=== PATIENT | female | born 1950 | race Caucasian/White ===

== ENCOUNTER 2020-07-31 08:57 | Emergency (ER) | payer MEDICARE ==
[2020-07-31] MEDS ORDERED: KETOROLAC TROMETHAMINE 15MG/ML ONE (10:00)
[2020-07-31] MEDS ORDERED: ONDANSETRON HCL 4 MG/2 ML VIAL ONE (10:00)
[2020-07-31] MEDS ORDERED: MORPHINE SULFATE 2 MG/ML 1ML SYG ONE (10:00)
[2020-07-31 10:04] LABS: BASOPHILS % (AUTO) 0.5 % (0.0-5.0); EOSINOPHILS % (AUTO) 0.4 % (0.0-8.0); HEMATOCRIT 41.4 % (36-48); LYMPHOCYTES % (AUTO) 11.9 % (21.0-51.0); MEAN CORPUSCULAR HEMOGLOBIN 30.6 pg (27.0-33.0); MEAN CORPUSCULAR HGB CONC 34.5 g/dL (32.0-36.0); MEAN CORPUSCULAR VOLUME 88.7 fL (79-99); MONOCYTES % (AUTO) 4.4 % (3.0-13.0); NEUTROPHILS % (AUTO) 82.4 % (40.0-77.0); PLATELET COUNT (AUTO) 280 K/uL (130-400); RED BLOOD CELL COUNT(AUTO) 4.67 MIL/uL (4.00-5.50); RED CELL DISTRIBUTION WIDTH 12.2 % (11.0-15.5); WHITE BLOOD COUNT (AUTO) 8.3 K/uL (4.8-10.8)
[2020-07-31 10:24] LABS: CREATININE 0.9 mg/dL (0.5-1.5); POTASSIUM 3.4 mmol/L (3.5-5.1)
[2020-07-31 10:29] LABS: ALBUMIN 4.3 g/dL (3.5-5.0); BILIRUBIN,TOTAL 0.7 mg/dL (0.2-1.0); TOTAL PROTEIN, SERUM 7.6 g/dL (6.0-8.3)
== END 2020-07-31 12:37 | disposition home or self-care (01) ==
LOC: EDH 08:57
DX: M54.31 Sciatica, right side (principal); M43.17 Spondylolisthesis, lumbosacral region; M19.90 Unspecified osteoarthritis, unspecified site; I10 Essential (primary) hypertension; Z87.891 Personal history of nicotine dependence; Z88.5 Allergy status to narcotic agent
CPT/HCPCS: 36415; 72100; 80053; 85025; 96365; 96375; 99284; J1885; J2405

== ENCOUNTER → 2020-08-16 | Outpatient (CLI) | payer MEDICARE | END | disposition home or self-care (01) | LOC: OIH 10:24 | PROVIDERS: ATTEND Internal Medicine | DX: M06.4 Inflammatory polyarthropathy (principal) ==

== ENCOUNTER 2024-06-01 13:14 | Inpatient (IN) | payer MEDICARE ==
[2024-06-01] VITALS (7 sets, daily range): BP systolic 126–148; BP diastolic 59–63; PULSE 69–82; RESP 17–20; TEMP 97.6–97.7; O2SAT 96–98
[~2024-06-01] VITALS: Ht 154.9 cm; Wt 70.4 kg
[2024-06-01 13:52] LABS: BASOPHILS # (AUTO) 0.05 K/uL (0.00-0.20); BASOPHILS % (AUTO) 0.5 % (0.0-5.0); EOSINOPHILS # (AUTO) 0.27 K/uL (0.00-0.70); EOSINOPHILS % (AUTO) 2.6 % (0.0-8.0); HEMATOCRIT 33.1 % (36-48); IMMATURE GRANULOCYTE ABSOLUTE 0.04 K/uL (0-1); LYMPHOCYTES % (AUTO) 9.9 % (21.0-51.0); MEAN CORPUSCULAR HEMOGLOBIN 29.4 pg (27.0-33.0); MEAN CORPUSCULAR HGB CONC 33.8 g/dL (32.0-36.0); MEAN CORPUSCULAR VOLUME 86.9 fL (79-99); MONOCYTES % (AUTO) 9.2 % (3.0-13.0); NEUTROPHILS # (AUTO) 8.1 K/uL (1.8-7.7); NEUTROPHILS % (AUTO) 77.4 % (40.0-77.0); PLATELET COUNT (AUTO) 265 K/uL (130-400); RED BLOOD CELL COUNT(AUTO) 3.81 MIL/uL (4.00-5.50); RED CELL DISTRIBUTION WIDTH 14.6 % (11.0-15.5); WHITE BLOOD COUNT (AUTO) 10.5 K/uL (4.8-10.8)
[2024-06-01 14:04] LABS: INR 1.03 (0.85-1.15); PROTHROMBIN TIME 11.1 SEC (9.6-11.6)
--- NOTE | 2024-06-01 14:06 | HMCIMG ---
CHEST 1VW CLINICAL HISTORY: sob COMPARISON: None TECHNIQUE: Single view of the chest was obtained. FINDINGS: There is a small right pleural effusion. Cardiac size is upper limits of normal to mildly enlarged. There is a pacemaker with biventricular leads. Note is made of a left chest port with the tip overlying the superior vena cava. The bony structures are unremarkable. IMPRESSION: Right pleural effusion with borderline heart size.
[2024-06-01 14:08] LABS: POTASSIUM 3.7 mmol/L (3.5-5.1)
[2024-06-01 14:10] LABS: SARS-CoV-2, RNA, NAAT NEGATIVE SARS CoV-2 (NEGATIVE)
[2024-06-01 14:13] LABS: MAGNESIUM 1.5 mg/dL (1.80-2.40)
[2024-06-01 14:14] LABS: INFLUENZA TYPE A Negative For Type A (NEGATIVE); INFLUENZA TYPE B Negative For Type B (NEGATIVE)
[2024-06-01 14:38] LABS: B-TYPE NATRIURETIC PEPTIDE 80 pg/mL (0-100)
[2024-06-01 15:01] LABS: APPEARANCE,URINE CLEAR (CLEAR); BILIRUBIN,URINE NEGATIVE (NEGATIVE); COLOR,URINE YELLOW (YELLOW); GLUCOSE, URINE (UA) NEGATIVE (NEGATIVE); KETONES,URINE NEGATIVE (NEGATIVE); LEUKOCYTE ESTERASE ,URINE 250 Leu/uL (NEGATIVE); NITRATE,URINE NEGATIVE (NEGATIVE); OCCULT BLOOD,URINE NEGATIVE (NEGATIVE); PH,URINE 5.5 (5.0-8.0); PROTEIN,URINE 10 mg/dL (NEGATIVE); UROBILINOGEN,URINE 0.2 mg/dL (0.2-1.0)
[2024-06-01 15:07] LABS: ADD UA MICROSCOPIC YES
[2024-06-01 15:10] LABS: BACTERIA,URINE FEW /HPF (None Seen); MUCUS,URINE RARE LPF (None Seen); RBC,URINE 0-1 /HPF (0-1); SQUAMOUS EPITHELIAL CELL,UR RARE /HPF (0-2)
--- NOTE | 2024-06-01 15:29 | ERN ---
General Chief Complaint: Shortness of Breath Stated Complaint: SOB Time Seen by MD: 13:19 Source: patient, family History of Present Illness Initial Comments Patient is a 74-year-old female coming in to be evaluated for shortness of breath. Patient states he has a history of lung cancer and frequently presents with pneumonias. Patient states the symptoms has been ongoing for a couple of days and has been getting worse today. Allergies: Coded Allergies: codeine (Unverified Allergy, Severe, HIVES, 06/01/24) cefaclor (Unverified Allergy, Unknown, RASH, 06/01/24) Past Medical History Past Medical History: Anemia, Cancer, High Cholesterol, Hypertension Past Surgical History: Hysterectomy, Cholecystectomy, Pacer/AICD Surgical History Other: RT LEG SX, BILAT HAND SX, CATARACT SX, RT LOBECTOMY ROS Dictation CONSTITUTIONAL: No chills, no fever, no weakness, no diaphoresis, no malaise. HEAD/FACE: No signs of trauma. EENT: No eye pain, no blurred vision, no tearing, no double vision, no ear pain, no ear discharge, no nose pain, no nasal congestion, no throat pain, no throat swelling, no mouth pain. RESPIRATORY: No cough, orthopnea, SOB, no stridor, wheezing. CARDIOVASCULAR: No chest pain, no edema, no palpitations, no syncope. GASTROINTESTINAL/ABDOMINAL: No abdominal pain, no constipation, no diarrhea, no nausea, no vomiting. GENITOURINARY: No abnormal discharge, no dysuria, no frequent urination, no hematuria. No complaints of pain in the genitals. MUSCULOSKELETAL: No back pain, no gout, no joint pain, no joint swelling, no muscle pain, no muscle stiffness, no neck pain. INTEGUMENTARY: No change in color, no change in hair/nails, no dryness, no lesion, no lumps, no rash. NEUROLOGICAL/PSYCH: No anxiety, not depressed, no emotional problem, no headache, no numbness, no pre-existing deficit, no history of seizures, no tremors, no weakness. HEMATOLOGIC/LYMPHATIC: Not anemic, no history of blood clots, no apparent bleeding, no bruising, glands not swollen. All Systems Negative, Except as Noted. Physical Exam Physical Exam Dictation VITAL SIGNS: Reviewed. GENERAL APPEARANCE: Alert, oriented x3, no acute distress, obese. HEAD AND FACE: Non-traumatic. EYES: PERRL, pink conjunctivas, eyelid no trauma, anterior chamber clear. EARS: Pinnas intact and no signs of trauma or erythema. Ear canals clear and no discharge. TMs no erythema. NOSE: No discharge, no bleeding. OROPHARYNX: Mouth normal, teeth no caries, tongue pink. Pharynx clear, no er ythema. Tonsils no exudates, no abscesses noted. Mucous membrane moist. NECK: Supple, non-tender, no thyromegaly, no masses, no JVD, no bruits. BREAST: Deferred. CHEST: No tenderness, no crepitus, no paradoxical movement, no retractions. LUNGS: Clear, well-ventilated, symmetric, no rales, no wheezing, no rhonchi, no stridor, good breath sounds bilaterally. HEART: Regular rate, regular rhythm, no murmur, no gallops. VASCULAR: No peripheral edema. ABDOMEN: Soft, positive bowel sounds, nondistended, no guarding, nontender, no rebound, no masses no hepatomegaly, no splenomegaly, no John's sign, no hernias. RECTAL: Deferred. GENITAL: Deferred. NEUROLOGICAL: Normal speech, gross motor function intact, gross sensory function intact. MUSCULOSKELETAL: Neck nontender, full range of motion, back nontender, full range of motion. EXTREMITIES: Nontender, full range of motion. SKIN: Color pink, dry, no turgor, no rash, no lacerations, no abrasions, no contusions. LYMPHATICS: Deferred. Results Laboratory and Microbiology Lab and Micro Result Laboratory Tests Test 06/01/24 13:35 06/01/24 14:35 White Blood Count 10.5 K/uL (4.8-10.8) Red Blood Count 3.81 MIL/uL (4.00-5.50) L Hemoglobin 11.2 g/dL (12.0-16.0) L Hematocrit 33.1 % (36-48) L Mean Corpuscular Volume 86.9 fL (79-99) Mean Corpuscular Hemoglobin 29.4 pg (27.0-33.0) Mean Corpuscular Hemoglobin Concent 33.8 g/dL (32.0-36.0) Red Cell Distribution Width 14.6 % (11.0-15.5) Platelet Count 265 K/uL (130-400) Mean Platelet Volume 10.4 fL (7.5-10.5) Immature Granulocyte % (Auto) 0.4 % (0-1) Neutrophils (%) (Auto) 77.4 % (40.0-77.0) H Lymphocytes (%) (Auto) 9.9 % (21.0-51.0) L Monocytes (%) (Auto) 9.2 % (3.0-13.0) Eosinophils (%) (Auto) 2.6 % (0.0-8.0) Basophils (%) (Auto) 0.5 % (0.0-5.0) Neutrophils # (Auto) 8.1 K/uL (1.8-7.7) H Lymphocytes # (Auto) 1.0 K/uL (1.0-4.8) Monocytes # (Auto) 1.0 K/uL (0.1-1.0) Eosinophils # (Auto) 0.27 K/uL (0.00-0.70) Basophils # (Auto) 0.05 K/uL (0.00-0.20) Absolute Immature Granulocyte (auto 0.04 K/uL (0-1) Nucleated Red Blood Cells 0.0 % (0.0-0.19) White Cell Morphology Comment See comments Prothrombin Time 11.1 SEC (9.6-11.6) Prothromb Time International Ratio 1.03 (0.85-1.15) Activated Partial Thromboplast Time 29.0 SEC (26.3-35.5) Sodium Level 141 mmol/L (136-145) Potassium Level 3.7 mmol/L (3.5-5.1) Chloride Level 104 mmol/L (101-111) Carbon Dioxide Level 26 mmol/L (21-32) Blood Urea Nitrogen 39 mg/dL (7-18) H Creatinine 2.0 mg/dL (0.5-1.0) H Glomerular Filtration Rate Calc 25 mL/min (>90) Random Glucose 105 mg/dL (70-105) Total Calcium 9.0 mg/dL (8.5-10.1) Magnesium Level 1.50 mg/dL (1.80-2.40) L Total Creatine Kinase 44 U/L (21-232) Troponin I High Sensitivity 16 ng/L (4-50) B-Type Natriuretic Peptide 80 pg/mL (0-100) Influenza Type A Antigen Negative For Type A Influenza Type B Antigen Negative For Type B SARS-CoV-2, RNA, NAAT NEGATIVE SARS CoV-2 Urine Color YELLOW (YELLOW) Urine Appearance CLEAR (CLEAR) Urine pH 5.5 (5.0-8.0) Urine Specific Leonard 1.020 (1.001-1.031) Urine Protein 10 mg/dL (NEGATIVE) H Urine Glucose (UA) NEGATIVE mg/dL (NEGATIVE) Urine Ketones NEGATIVE mg/dL (NEGATIVE) Urine Occult Blood NEGATIVE (NEGATIVE) Urine Nitrate NEGATIVE (NEGATIVE) Urine Bilirubin NEGATIVE mg/dL (NEGATIVE) Urine Urobilinogen 0.2 mg/dL (0.2-1.0) Urine Leukocyte Esterase 250 Francesca/uL (NEGATIVE) H Urine RBC 0-1 /HPF (0-1) Urine WBC 11-25 /HPF (0-1) H Urine Squamous Epithelial Cells RARE /HPF (0-2) Urine Bacteria FEW /HPF (None Seen) Urine Hyaline Casts 2-5 /LPF (0-1 /LPF) H Labs Reviewed?: Yes EKG/XRAY/US/CT/MRI X-RAY Comment [address] [address] IMAGING REPORT Signed PATIENT: MISTY RANDOLPH MR#: [id number] : 1950 SEX: F AGE: 74 LOCATION: [facility] ORDER 1331 STATUS: [facility] REPORT#: [id number] SERVICE 1328 REASON: sob ORDERING PHYSICIAN: HECTOR SELF MD PROCEDURE: CXR1VW - CHEST 1VW CHEST 1VW CLINICAL HISTORY: sob COMPARISON: None TECHNIQUE: Single view of the chest was obtained. FINDINGS: There is a small right pleural effusion. Cardiac size is upper limits of normal to mildly enlarged. There is a pacemaker with biventricular leads. Note is made of a left chest port with the tip overlying the superior vena cava. The bony structures are unremarkable. IMPRESSION: Right pleural effusion with borderline heart size. DICTATED BY: CATHY MULLER DO DATE: 06/01/24 1358 ELECTRONICALLY SIGNED BY: CATHY MULLER DO DATE: 06/01/24 1406 [facility] MDM: Differential diagnosis: Respiratory distress, right-sided pleural effusion, COPD exacerbation, Rationale: Tests considered and ordered secondary to shared decision making include: labs, ECG and radiology Previous outside records reviewed: Old ER visits. Risk of complication and/or morbidity or mortality of patient management: None Medications-Per medication reconciliation Need for hospitalization: Patient does meet criteria for hospitalization. Need for emergency major/minor surgery: No There are no social concerns with this patient. Prescription drug management Prescriptions will include symptomatic care Patient's prior external medical records from other ER visits were reviewed by me as indicated. Prior testing and results from previous visits were reviewed. Prior tests were taken into account with medical decision making and resource utilization, independent historian/historians were used to obtain complete medical history. I independently interpreted the test that were performed, results were reviewed by me and considered findings on radiology if ordered. Medical management and examination interpretation discussions were had by me with other qualified healthcare professionals as indicated for the patient's care. Patient is a 74-year-old female coming in to be evaluated for shortness of breath. Laboratory workup positive for hypomagnesemia and urinary tract infection. On physical exam bilateral crackles and wheezing of the lungs. Breathing treatment was given patient feels a little bit better. We will be admitted for ongoing management of COPD exacerbation with right pleural effusion and as well as history of lung cancer. Patient will be admitted under the care of hospitalist group. ED Course Orders Procedure Category Date Status Time Cbc With Differential LAB 06/01/24 Complete 13:28 Prothrombin Time With LAB 06/01/24 Complete INR 13:28 B-Type Natriuretic LAB 06/01/24 Complete Peptide 13:28 Chest 1vw RAD 06/01/24 Resulted 13:28 12 Lead Ekg Tracing- EKG 06/01/24 Logged Technical 13:28 Magnesium LAB 06/01/24 Complete 13:28 Creatine Kinase, Total LAB 06/01/24 Complete 13:28 Troponin I High LAB 06/01/24 Complete Sensitivity 13:28 Urinalysis Profile LAB 06/01/24 Complete 13:28 Partial LAB 06/01/24 Complete Thromboplastin Time 13:28 Basic Metabolic Panel LAB 06/01/24 Complete 13:28 Covid Rna Naat LAB 06/01/24 Complete 13:28 Influenza Type A & B, LAB 06/01/24 Complete Rapid 13:28 Magnesium 2gm Premix PHA 06/01/24 In Process 50ml (Magnesium 2gm 15:00 Culture Urine GINNA 06/01/24 In Process 15:08 Ipratropium/Albuterol PHA 06/01/24 Complete Neb (Duoneb) 15:30 Current Medications Medications (Trade) Dose Ordered Sig/Baldev Route PRN Reason Start Time Stop Time Status Last Admin Dose Admin Albuterol (DUOneb) 1 udvial ONCE ONCE IH 06/01/24 15:30 06/01/24 15:31 DC 06/01/24 15:48 Magnesium Sulfate 50 ml @ 0 mls/hr PROTOCOL IV 06/01/24 15:00 07/01/24 14:59 Vital Signs Date Time Temp Pulse Resp B/P (MAP) Pulse Ox O2 Delivery O2 Flow Rate FiO2 06/01/24 15:52 77 18 06/01/24 14:37 98.6 80 20 100/ 96 Room Air* 0 21 06/01/24 13:31 98.6 82 20 95/65 98 Room Air* 0 21 06/01/24 13:17 98.4 68 19 107/62 96 Room Air DX & DISP Disposition: Inpatient Decision to Admit Time: 16:24 Departure Impression: Primary Impression: COPD exacerbation Additional Impressions: Pleural effusion, History of lung cancer Condition: Stable Referrals: MICHAEL VARNER (PCP) HECTOR SELF MD Jun 01, 2024 15:29
[2024-06-01] MEDS: IpraTROPium/alBUTERol SULFATE 3 ML SOLUTION IH ONE (15:48)
[2024-06-01] MEDS: MAGNESIUM 2GM PREMIX 50ML 50 ML IV SCH (16:25)
--- NOTE | 2024-06-01 16:26 | HP ---
[facility] HISTORY AND PHYSICAL Date of Service: Jun 01, 2024 Time of Service: 16:26 HISTORY OF PRESENT ILLNESS: [74 year old female with past medical history lung cancer diagnosed in 2021 last chemotherapy was March of 2024 for which she reported they stopped because she has not tolerated well. 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 In the last four days, patient has been having episodes of cough, congestion and shortness of breaths even at rest. Patient does not have home oxygen. In the ED, her initial vitals showed temperature of 98.4 degree F, heart rate 68, respiratory rate 19, BP 107/62, O2 sat 96% on room air. Patient had a chest x-ray in the ED which showed right pleural effusion with borderline heart size. Patient received albuterol x1 via nebulizer, Levaquin 500 mg IV x1. She was referred to the hospitalist for further evaluation and management. ] REVIEW OF SYSTEMS CONSTITUTIONAL: Denies fevers, chills, or night sweats. No unintentional weight loss reported. NEUROLOGICAL: Denies headache, amaurosis fugax, motor weakness, sensory deficit, vertigo/spinning sensation, gait abnormalities, or tremors. ENT: No hearing loss, otalgia, otorrhea, rhinitis, rhinorrhea, hoarseness, or sore throat. CARDIOVASCULAR: Denies any exertional angina, dyspnea on exertion, orthopnea, paroxysmal nocturnal dyspnea, palpitations, life-threatening arrhythmias, claudication. PULMONARY: Denies any shortness of breath, cough, phlegm/sputum, hemoptysis, pleuritic chest pain. SLEEP: Denies morning headaches, daytime somnolence or napping. Denies difficulty falling asleep, staying asleep, waking from sleep. Denies knowledge of snoring. GASTROINTESTINAL: Denies any type of dysphagia to either liquids or solids. Denies nausea, vomiting, pyrosis, early satiety, abdominal pain, diarrhea, constipation, or changes in stool consistency or caliber. Denies coffee-ground emesis, hematemesis, hematochezia, or melanotic stools. GENITOURINARY: Denies frequency, urgency, nocturia, hematuria or incontinence (Storage/Irritative symptoms.) Low urinary stream, straining to void, urinary intermittency or hesitancy, splitting of the voiding stream, terminal dribbling. ENDOCRINOLOGIC: Denies polyuria, polydipsia, polyphagia or heat/cold intolerances. HEMATOLOGIC: Denies thrombophilia/previous clots, or coagulopathy/bleeding disorders. ONCOLOGIC: Denies personal history of malignancy. DERMATOLOGIC: Denies rashes or pruritus. PSYCHIATRIC: Denies any suicidal or homicidal ideation. Denies hallucinations. PAST MEDICAL HISTORY: [Lung cancer diagnosed in 2021, hypertension, CKD, hypomagnesemia, anemia ] PAST SURGICAL HISTORY: [Hysterectomy, cholecystectomy, cataract surgery, right ankle surgery ] PAST SOCIAL HISTORY: [Patient is a [place] from [place]. She is . Ex-smoker quit 30 years ago, occasionally drinks alcohol (not lately), denies illicit drug use. ] FAMILY HISTORY: [Noncontributory ] Coded Allergies: codeine (Unverified Allergy, Severe, HIVES, 06/01/24) cefaclor (Unverified Allergy, Unknown, RASH, 06/01/24) PHYSICAL EXAM GENERAL APPEARANCE: The patient is awake, alert, and oriented, in no acute cardiopulmonary distress. NEUROLOGICAL: Cranial nerves II-XII grossly intact. Motor is 5/5 in bilateral upper and lower extremities proximal to distal. No sensory deficits. HEENT: Face is symmetric. Pupils are equal and reactive. Extraocular movements are intact. NECK: Supple. No JVD. No thyromegaly. No submental, submandibular, pre- /postauricular, occipital or supraclavicular lymphadenopathy. CHEST: Normal chest expansion. No Telemetry. LUNGS: Absence of any rales, rhonchi or any wheezing. CARDIOVASCULAR: Regular. S1 and S2 normal. No appreciable rubs, murmurs or gallops. ABDOMEN: Soft, nontender, and nondistended. There is no rebound, voluntary guarding, or rigidity. : Deferred. No Rosas. EXTREMITIES: Non-edematous and not cyanotic. No clubbing. Good capillary refill. SKIN: No skin breakdown. Vital Sign (Last 24 Hours) 06/01/24 06/01/24 14:37 15:52 Temp 98.6 Pulse 77 Resp 18 B/P (MAP) 100/ Pulse Ox 96 O2 Delivery Room Air* O2 Flow Rate 0 FiO2 21 LABS: Laboratory: Test 06/01/24 14:35 06/01/24 13:35 Range/Units Urine Color YELLOW YELLOW Urine Appearance CLEAR CLEAR Urine pH 5.5 5.0-8.0 Urine Specific [place] 1.020 1.001-1.031 Urine Protein 10 H NEGATIVE mg/dL Urine Glucose (UA) NEGATIVE NEGATIVE mg/dL Urine Ketones NEGATIVE NEGATIVE mg/dL Urine Occult Blood NEGATIVE NEGATIVE Urine Nitrate NEGATIVE NEGATIVE Urine Bilirubin NEGATIVE NEGATIVE mg/dL Urine Urobilinogen 0.2 0.2-1.0 mg/dL Urine Leukocyte Esterase 250 H NEGATIVE Francesca/uL Urine RBC 0-1 0-1 /HPF Urine WBC 11-25 H 0-1 /HPF Urine Squamous Epithelial Cells RARE 0-2 /HPF Urine Bacteria FEW None Seen /HPF Urine Hyaline Casts 2-5 H 0-1 /LPF /LPF White Blood Count 10.5 4.8-10.8 K/uL Red Blood Count 3.81 L 4.00-5.50 MIL/uL Hemoglobin 11.2 L 12.0-16.0 g/dL Hematocrit 33.1 L 36-48 % Mean Corpuscular Volume 86.9 79-99 fL Mean Corpuscular Hemoglobin 29.4 27.0-33.0 pg Mean Corpuscular Hemoglobin Concent 33.8 32.0-36.0 g/dL Red Cell Distribution Width 14.6 11.0-15.5 % Platelet Count 265 130-400 K/uL Mean Platelet Volume 10.4 7.5-10.5 fL Immature Granulocyte % (Auto) 0.4 0-1 % Neutrophils (%) (Auto) 77.4 H 40.0-77.0 % Lymphocytes (%) (Auto) 9.9 L 21.0-51.0 % Monocytes (%) (Auto) 9.2 3.0-13.0 % Eosinophils (%) (Auto) 2.6 0.0-8.0 % Basophils (%) (Auto) 0.5 0.0-5.0 % Neutrophils # (Auto) 8.1 H 1.8-7.7 K/uL Lymphocytes # (Auto) 1.0 1.0-4.8 K/uL Monocytes # (Auto) 1.0 0.1-1.0 K/uL Eosinophils # (Auto) 0.27 0.00-0.70 K/uL Basophils # (Auto) 0.05 0.00-0.20 K/uL Absolute Immature Granulocyte (auto 0.04 0-1 K/uL Nucleated Red Blood Cells 0.0 0.0-0.19 % White Cell Morphology Comment See comments Prothrombin Time 11.1 9.6-11.6 SEC Prothromb Time International Ratio 1.03 0.85-1.15 Activated Partial Thromboplast Time 29.0 26.3-35.5 SEC Sodium Level 141 136-145 mmol/L Potassium Level 3.7 3.5-5.1 mmol/L Chloride Level 104 101-111 mmol/L Carbon Dioxide Level 26 21-32 mmol/L Blood Urea Nitrogen 39 H 7-18 mg/dL Creatinine 2.0 H 0.5-1.0 mg/dL Glomerular Filtration Rate Calc 25 >90 mL/min Random Glucose 105 70-105 mg/dL Total Calcium 9.0 8.5-10.1 mg/dL Magnesium Level 1.50 L 1.80-2.40 mg/dL Total Creatine Kinase 44 21-232 U/L Troponin I High Sensitivity 16 4-50 ng/L B-Type Natriuretic Peptide 80 0-100 pg/mL Influenza Type A Antigen Negative For Type A NEGATIVE Influenza Type B Antigen Negative For Type B NEGATIVE SARS-CoV-2, RNA, NAAT NEGATIVE SARS CoV-2 NEGATIVE Current Medications Medications (Trade) Dose Ordered Sig/Baldev Route PRN Reason Start Time Stop Time Status Last Admin Dose Admin Magnesium Sulfate 50 ml @ 0 mls/hr PROTOCOL IV 06/01/24 15:00 07/01/24 14:59 DIAGNOSTICS / RADIOLOGY: [place] [address] [place] [id number] IMAGING REPORT Signed PATIENT: MISTY RANDOLPH MR#: [id number] : 1950 SEX: F AGE: 74 LOCATION: [facility] [address] ORDER 1331 STATUS: REG ER REPORT#: [id number] SERVICE 1328 REASON: sob ORDERING PHYSICIAN: HECTOR SELF MD PROCEDURE: CXR1VW - CHEST 1VW CHEST 1VW CLINICAL HISTORY: sob COMPARISON: None TECHNIQUE: Single view of the chest was obtained. FINDINGS: There is a small right pleural effusion. Cardiac size is upper limits of normal to mildly enlarged. There is a pacemaker with biventricular leads. Note is made of a left chest port with the tip overlying the superior vena cava. The bony structures are unremarkable. IMPRESSION: Right pleural effusion with borderline heart size. DICTATED BY: CATHY MULLER DO DATE: 06/01/24 1358 ELECTRONICALLY SIGNED BY: CATHY MULLER DO DATE: 06/01/24 1406 ] ASSESSMENT: [ Acute respiratory distress, POA Chronic obstructive pulmonary disease exacerbation, POA Acute on chronic kidney failure, stage IV Hypomagnesemia, POA Hypertension ] PLAN: [ Admit to medical telemetry Patient will continue with oxygen supplementation to keep O2 sat greater than 92% We will be consulting Oncology, Dr. Celena Hernandez We will be consulting pulmonology Patient will be on oxygen supplementation to keep O2 sat greater than 92% We will repeat magnesium per protocol We will monitor electrolytes daily GI and DVT prophylaxis Repeat labs tomorrow Patient will have heart healthy diet Patient is a full code ADVANCED CARE PLANNING 1. Which of the following were discussed? Hospice Care - Yes / No Therapeutic options - Yes / No Advance Directives - Yes / No Other discussions - 2. Discussed with who? Patient 3. Voluntary nature of this service was explained to the patient? Yes / No 4. Amount of time spent - 21 mins 5. Reviewed by Physician? (if this service was performed by NPP) Yes / No ] ATTESTATION BY PHYSICIAN I have seen and examined the patient. I reviewed the documentation, medical decision making, and treatment plan as noted by the mid-level provider above. I agree with the findings and plan of care. DAYO BORGES MD, JANICE B [facility] Jun 01, 2024 16:26
[2024-06-01] MEDS ORDERED: acetaMINOPHEN 325 MG TAB PO PRN ×2 (16:30)
[2024-06-01] MEDS ORDERED: ondanSETRON 4MG INJ IVP PRN (16:30)
[2024-06-01] MEDS ORDERED: levoFLOXacin 500 MG/D5W 100 ML 100 ML IV SCH (16:30)
[2024-06-01] MEDS ORDERED: PoTASSium chloRIDE 20MEQ ER 20 MEQ ERTAB PO PRN (17:00)
[2024-06-01] MEDS ORDERED: PoTASSium chl 10% ELIXIR 20MEQ 20 MEQ/15 ML UDCUP PO PRN ×2 (17:00)
[2024-06-01] MEDS ORDERED: PoTASSium chloRIDE 10MEQ/100ML 100 ML IV PRN ×2 (17:00)
[2024-06-01] MEDS: levoFLOXacin 500 MG/D5W 100 ML 100 ML IV ONE (17:13)
--- NOTE | 2024-06-01 17:34 | EKG ---
[facility] Test Date: 2024-06-01 Test Time: 13:30:36 Pat Name: MISTY RANDOLPH Department: EDHIP Room: ED 50 Gender: F Bale [place]er: [id number] : 1950 Requested By: HECTOR SELF Order Number: [id number] Reading MD: Jose G Marcus Measurements Intervals [place] Rate: 78 P: 39 CO: 216 QRS: 106 QRSD: 129 T: 11 QT: 395 QTc: 450 Interpretive Statements Atrial-sensed ventricular-paced complexes Borderline prolonged CO interval Nonspecific intraventricular conduction delay Anterior infarct, old No previous ECG available for comparison Electronically Signed On 06-01-2024 17:50:24 SMOKE JUMPER by Jose G Marcus Please click the below link to view image of tracing.
[2024-06-01] MEDS ORDERED: MAGN100T PO (18:15)
[2024-06-01] MEDS ORDERED: FERR-82 PO (18:15)
[2024-06-01] MEDS ORDERED: AMLO-257 PO (18:15)
[2024-06-01] MEDS ORDERED: POTA-193 PO (18:15)
[2024-06-01] MEDS ORDERED: MULT-1203 PO (18:15)
[2024-06-01] MEDS ORDERED: CARV12.511 PO (18:15)
[2024-06-01] MEDS ORDERED: ALBU18HF7 IH (18:15)
[2024-06-01] MEDS ORDERED: ATOR10 PO (18:15)
[2024-06-01] MEDS ORDERED: VALS160T29 PO (18:15)
[2024-06-01] MEDS ORDERED: LACT1CAP81 PO (18:15)
[2024-06-01] MEDS ORDERED: FOLI0.4T6 PO (18:15)
[2024-06-01] MEDS ORDERED: PANT40GR PO (18:15)
[2024-06-01] MEDS ORDERED: FEXO-263 PO (18:15)
[2024-06-01] MEDS ORDERED: MONT-39 PO (18:15)
--- NOTE | 2024-06-01 19:10 | HMCIMG ---
CT CHEST W/O CONTRAST REASON: PLEURAL EFFUSION, PNEUMONIA, LUNG CA COMPARISON: None. TECHNIQUE: Multiple sequential axial images of the chest were obtained from the thoracic inlet through the upper pole of the kidneys without intravenous contrast administration. FINDINGS: There is some pleural thickening and volume loss in the right lung base. Lungs are otherwise clear. There are no acute appearing focal parenchymal infiltrates. Heart size is normal. There is no hilar or mediastinal lymphadenopathy. There is diffuse coronary artery calcification. There is a pacemaker in place. Chest wall appears normal. Visualized upper abdominal structures are unremarkable. IMPRESSION: 1. There is some mild pleural thickening and volume loss in the right lower lobe. 2. No acute focal parenchymal lesion. 3. Coronary artery calcification. CT was performed with one or more following dose reduction techniques: automated exposure control, adjustment of the mA and kv according to patient's size, or use of a iterative reconstruction technique.
--- NOTE | 2024-06-01 20:15 | NUR ---
ADMIT PT ADMITTED TO ROOM 332, AAOX4. NOTED EPISODES OF PRODUCTIVE COUGH. BREATHING WITH EASE ON RA. ADMISSION CARE DONE. ADMISSION V/S MONITORED, STABLE. ADMISSION ASSESSMENT DONE, PLEASE REFER TO CHART. MEDS DUE ADMINISTERED. ADMISSION DATA BASE COMPLETED. ORIENTED TO ROOM AND UNIT. IN FOR MORE CARE AND MANAGEMENT. Addendum: 06/01/24 at 2130 by MIKEL GARCIA RN RN Amended: Links added.
[2024-06-01] MEDS: FAMOTIDINE 20MG VIAL IV SCH (20:33)
--- NOTE | 2024-06-01 22:39 | NUR ---
APPLICATIONS SUPPORT SPECIALIST [facility] IN TO SEE PT. REFERRED PT'S COUGHING EPISODES. STATED WITH ORDER COUGH MEDICINE, PLEASE REFER TO CPOE. WILL MEDICATE PT.
[2024-06-01] MEDS ORDERED: IpraTROPium/alBUTERol SULFATE 3 ML SOLUTION IH PRN (23:30)
[2024-06-01] MEDS: IpraTROPium 0.5 MG/2.5 ML INH IH SCH (23:34)
--- NOTE | 2024-06-01 23:36 | CONS ---
[facility] CONSULTATION NOTE Date Patient Seen: Jun 01, 2024 Time of Visit: 23:00 Supervising Physician: [Dr. Talha Graham] Reason for Consultation: [Pulmo consult for COPD exacerbation and progressive dyspnea] Primary Care Physician: [Dr. Nohemy Alicia ] Outpatient Specialists: [ ] Inpatient Consults: [BIS team-pulmo consult ] PROBLEM LIST: Progressive dyspnea: Suspected COPD exacerbation versus [id number] bronchitis-POA ELI-POA Hypomagnesemia-POA Suspected community-acquired pneumonia in the setting of immunocompromise state- POA Right pleural effusion on CXR-POA History of right lung cancer, currently not on chemotherapy or immunomodulator due to intolerance of treatment HX of recurrent COPD exacerbation Ppm in Situ Primary hypertension Former smoker Plan -obtain CT chest, to rule out pleural effusion and pneumonia -incentive spirometry q.1 hour times 10 while awake -manage cough and fever p.r.n. -Titrate oxygen to keep saturation above 92%, currently on room air -start on budesonide inhaler b.i.d., patient is reluctant to start on oral corticosteroids due to unwanted side effects. On my assessment, there is no significant wheezing and patient claims it comes and goes. -if respiratory symptoms become more pronounced and with escalating demand for oxygenation, we will consider IV steroid therapy -obtain echo in a.m. -obtain pneumonia studies, at this time. Okay to continue IV antibiotic coverage until pneumonia is ruled out -IV NS at 75 mL/hour times 24 hours, continue to monitor kidney function HPI: [Per hospitalist's HPI: "74 year old female with past medical history lung cancer diagnosed in 2021 last chemotherapy was March of 2024 for which she reported they stopped because she has not tolerated well. 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 In the last four days, patient has been having episodes of cough, congestion and shortness of breaths even at rest. Patient does not have home oxygen. In the ED, her initial vitals showed temperature of 98.4 degree F, heart rate 68, respiratory rate 19, BP 107/62, O2 sat 96% on room air. Patient had a chest x-ray in the ED which showed right pleural effusion with borderline heart size. Patient received albuterol x1 via nebulizer, Levaquin 500 mg IV x1. She was referred to the hospitalist for further evaluation and management." BIS team was consulted for pulmonology eval r/t COPD exacerbation and possible pneumonia. At the time of my visit, patient is resting comfortably on the bed, denies pain or discomfort, hemodynamically stable, on room air saturating 97-98% and in no acute distress. Patient claims that for the past 3-4 days she has been suff ering from constant cough with intermittent productive that alternates with dry cough, occasional mild wheezing at times and worsening shortness of breath even at rest. She claims she would have recurrent COPD exacerbation in the past and just recently completed oral prednisone therapy. I asked if she has been diagnosed with bronchitis in the past and she said that she always has bronchitis. She denies fever or chills. Physical assessment was unrevealing, lung sounds are clear without wheezing , rales or rhonchi. Patient refused oral steroid claiming that she does not like experiencing the unwanted side effects. I discussed about starting her on budesonide which is an inhaler with steroids and she agreed. I will obtain 2D echo since the patient is a winter [place] and no prior echo cardiogram result on her record. Goals of care were discussed with the patient verbalizes understanding and agreement. PAST MEDICAL HX: see above PAST SURGICAL HX: noncontributory SOCIAL HISTORY: No tobacco, ETOH, or illicit drug use Coded Allergies: codeine (Unverified Allergy, Severe, HIVES, 06/01/24) cefaclor (Unverified Allergy, Unknown, RASH, 06/01/24) REVIEW OF SYSTEMS: 12 point ROS reviewed with patient. Pertinent positives mentioned above. Otherwise negative. PHYSICAL EXAM: GENERAL: alert, awake oriented x 3, not in acute distress HEENT: EOMI, Sclera non icteric, moist mucosa NECK: Supple, no JVD, trachea midline LUNGS: Clear breath sounds bilaterally. No wheezes HEART: Regular rate and rhythm. Normal S1 and S2, without murmurs ABD: Abdomen soft, nontender. Bowel sounds present EXT: No clubbing cyanosis or edema NEURO: Alert and oriented to person, follows commands Vital Signs (last 8hr) Date Time Temp Pulse Resp B/P (MAP) Pulse Ox O2 Delivery O2 Flow Rate FiO2 06/01/24 22:57 97.5 70 18 126/59 97 Room Air 06/01/24 20:25 98 Room Air* 0 21 06/01/24 20:15 97.7 76 17 148/63 98 Room Air 06/01/24 19:42 82 20 N/A Room Air 06/01/24 19:34 82 19 06/01/24 19:26 98.4 78 18 116/52 98 Room Air* 0 06/01/24 18:39 98.1 68 18 129/51 96 Room Air* 0 06/01/24 17:40 98.1 70 18 116/56 96 Room Air* 0 06/01/24 17:00 71 18 129/63 96 Room Air* 0 06/01/24 16:30 98.1 71 18 118/55 96 Room Air* 0 06/01/24 15:52 77 18 LABS: Hematology Labs: Test 06/01/24 13:35 Range/Units White Blood Count 10.5 4.8-10.8 K/uL Red Blood Count 3.81 L 4.00-5.50 MIL/uL Hemoglobin 11.2 L 12.0-16.0 g/dL Hematocrit 33.1 L 36-48 % Mean Corpuscular Volume 86.9 79-99 fL Mean Corpuscular Hemoglobin 29.4 27.0-33.0 pg Mean Corpuscular Hemoglobin Concent 33.8 32.0-36.0 g/dL Red Cell Distribution Width 14.6 11.0-15.5 % Platelet Count 265 130-400 K/uL Mean Platelet Volume 10.4 7.5-10.5 fL Immature Granulocyte % (Auto) 0.4 0-1 % Neutrophils (%) (Auto) 77.4 H 40.0-77.0 % Lymphocytes (%) (Auto) 9.9 L 21.0-51.0 % Monocytes (%) (Auto) 9.2 3.0-13.0 % Eosinophils (%) (Auto) 2.6 0.0-8.0 % Basophils (%) (Auto) 0.5 0.0-5.0 % Neutrophils # (Auto) 8.1 H 1.8-7.7 K/uL Lymphocytes # (Auto) 1.0 1.0-4.8 K/uL Monocytes # (Auto) 1.0 0.1-1.0 K/uL Eosinophils # (Auto) 0.27 0.00-0.70 K/uL Basophils # (Auto) 0.05 0.00-0.20 K/uL Absolute Immature Granulocyte (auto 0.04 0-1 K/uL Nucleated Red Blood Cells 0.0 0.0-0.19 % White Cell Morphology Comment See comments Chemistry Labs: Test 06/01/24 13:35 Range/Units Sodium Level 141 136-145 mmol/L Potassium Level 3.7 3.5-5.1 mmol/L Chloride Level 104 101-111 mmol/L Carbon Dioxide Level 26 21-32 mmol/L Blood Urea Nitrogen 39 H 7-18 mg/dL Creatinine 2.0 H 0.5-1.0 mg/dL Glomerular Filtration Rate Calc 25 >90 mL/min Random Glucose 105 70-105 mg/dL Total Calcium 9.0 8.5-10.1 mg/dL Magnesium Level 1.50 L 1.80-2.40 mg/dL Total Creatine Kinase 44 21-232 U/L Troponin I High Sensitivity 16 4-50 ng/L B-Type Natriuretic Peptide 80 0-100 pg/mL Coagulation Labs: Test 06/01/24 13:35 Range/Units Prothrombin Time 11.1 9.6-11.6 SEC Prothromb Time International Ratio 1.03 0.85-1.15 Activated Partial Thromboplast Time 29.0 26.3-35.5 SEC DIAGNOSTICS / RADIOLOGY RESULTS: [ ] PLAN NEURO: Minimize central acting medications as possible. Maintain fall precautions, adequate lighting during the day PULMONARY: Supplemental 02 as needed. Maintain aspiration precautions at all times CARDIOVASCULAR: Follow hemodynamics. Vital signs per facility protocol GI & NUTRITION: Continue with nutritional support. Continue stool softeners and laxatives as needed. KIDNEYS & ELECTROLYTES: Strict monitoring of intake, output and overall fluid balance. Avoid nephrotoxic medications to the extent possible. Medications to be dosed according to renal function. Monitor electrolytes and replace as needed ENDOCRINE: Maintain blood glucose between 100-180 at all times. Hypoglycemia protocol in place INFECTIOUS DISEASE: Trend temperature, WBC and procalcitonin level Follow cultures, deescalate antibiotics as soon as possible. Panculture if new onset fever ONCOLOGY/HEMATOLOGY/COAGULATION: Monitor for s/s of bleeding Monitor hemoglobin, coagulation studies as needed SKIN: Pressure ulcer prevention per facility protocol Specialty mattress ORTHO/REHAB: Continue PT/OT Prophylaxis: Continue GI and DVT prophylaxis Code Status: Full Resuscitation Disposition: TBD Other: Total patient care time: 35 minutes YOSVANY LEAL [facility] Jun 01, 2024 23:36
[2024-06-01] MEDS: BENZONATATE 100 MG CAPSULE PO PRN (23:59)
[2024-06-01] MEDS: 0.9%NACL 1000ML 1,000 ML IV SCH (23:59)
[2024-06-02] VITALS (14 sets, daily range): BP systolic 126–151; BP diastolic 61–75; PULSE 67–89; RESP 16–20; TEMP 97.6–98.7; O2SAT 95–100
[2024-06-02 03:58] LABS: MEAN CORPUSCULAR HEMOGLOBIN 30.1 pg (27.0-33.0); MEAN CORPUSCULAR HGB CONC 34.3 g/dL (32.0-36.0); MEAN CORPUSCULAR VOLUME 87.8 fL (79-99); RED BLOOD CELL COUNT(AUTO) 3.19 MIL/uL (4.00-5.50); RED CELL DISTRIBUTION WIDTH 14.6 % (11.0-15.5); WHITE BLOOD COUNT (AUTO) 7.2 K/uL (4.8-10.8)
[2024-06-02 04:14] LABS: ALBUMIN 2.7 g/dL (3.5-5.0); BILIRUBIN,TOTAL 0.4 mg/dL (0.2-1.0); CREATININE 1.9 mg/dL (0.5-1.0); POTASSIUM 3.7 mmol/L (3.5-5.1); TOTAL PROTEIN, SERUM 5.8 g/dL (6.0-8.3)
--- NOTE | 2024-06-02 05:18 | NUR ---
ROUNDS PT FAIRLY ASLEEP WITH RESPIRATIONS EVEN AND UNLABORED. NO NOTED DISTRESS. KEPT UNDISTURBED FOR NOW. CALL LIGHT WITHIN REACH. FOR MORE CARE.
[2024-06-02] MEDS: BUDESONIDE 0.25 MG/2 ML INH IH SCH (06:59)
[2024-06-02] MEDS: ENOXAPARIN SODIUM 30 MG/0.3 ML SQ SCH (09:11)
[2024-06-02 10:24] LABS: ABG OXYGEN SATURATION 95.7 % (94.0-98.0); ABG PCO2 33 mmHg (32-45); ABG PH 7.383 (7.350-7.450); DEVICE COMMENT RR CATHY; PO2, ARTERIAL BG 79.7 mmHg (83.0-108.0); VENT MODE, BG RA (ROOM AIR)
[2024-06-02 12:02] LABS: MYCOPLASMA AB IGM NEGATIVE (NEGATIVE)
--- NOTE | 2024-06-02 13:45 | NUR ---
Discharge Planning: Pt. states she lives with her spouse Edis Granda. Contact number is . Pt. sees Nohemy BOBO at [facility], and preferred pharmacy is [facility] Dr. Lawrence is her oncologist. Pt. states she is independent with all ADL's. No home health, provider services, or DME. DCP is for home. No d/c needs at present time. Addendum: 06/02/24 at 1352 by STEVE HAYNES RN CM Amended: Links added.
--- NOTE | 2024-06-02 14:26 | PN ---
[facility] PROGRESS NOTE Date Patient Seen: Jun 02, 2024 Time of Visit: 1048 Supervising Physician: Dr. Stephenson Primary Care Physician: [ ] Outpatient Specialists: [ ] Inpatient Consults: [BIS team-pulmo consult ] PROBLEM LIST: Progressive dyspnea: Suspected COPD exacerbation versus [id number] bronchitis-POA ELI-POA Hypomagnesemia-POA Suspected community-acquired pneumonia in the setting of immunocompromise state- POA Right pleural effusion on CXR-POA History of right lung cancer, currently not on chemotherapy or immunomodulator due to intolerance of treatment HX of recurrent COPD exacerbation Ppm in Situ Primary hypertension Former smoker Plan -ABG now then as needed -incentive spirometry q.1 hour times 10 while awake -manage cough and fever p.r.n. -Titrate oxygen to keep saturation above 92%, currently on room air -continue budesonide inhaler b.i.d., patient is reluctant to start on oral corticosteroids due to unwanted side effects. On my assessment, there is no significant wheezing and patient claims it comes and goes. -if respiratory symptoms become more pronounced and with escalating demand for oxygenation, we will consider IV steroid therapy -continue Levaquin -start Mucomyst every 6 hours INTERVAL HISTORY: 06/02 patient was seen and examined by bedside with present. Patient is awake alert able to answer simple questions appropriately. Patient at this time is on air appears to be tolerating well. Patient denies any chest pain however still complains of shortness of breath upon minimal exertion however states is improving. Patient's CT chest shows pleural thickening with volume loss to right lower lobe. Patient to continue with Levaquin patient's CBC BMP unremarkable. At this time we will order a set of ABGs to get a baseline on patient. Patient voices having difficulty bringing up phlegm, we will start patient on Mucomyst every 6 hours and continue to monitor closely. REVIEW OF SYSTEMS: 12 point ROS reviewed with patient. Pertinent positives mentioned above. Other nickerson negative. PHYSICAL EXAM: GENERAL: alert, awake oriented x 3, not in acute distress HEENT: EOMI, Sclera non icteric, moist mucosa NECK: Supple, no JVD, trachea midline LUNGS: Clear breath sounds bilaterally. No wheezes HEART: Regular rate and rhythm. Normal S1 and S2, without murmurs ABD: Abdomen soft, nontender. Bowel sounds present EXT: No clubbing cyanosis or edema NEURO: Alert and oriented to person, follows commands Vital Signs (last 8hr) Date Time Temp Pulse Resp B/P (MAP) Pulse Ox O2 Delivery O2 Flow Rate FiO2 06/02/24 11:18 97.5 77 18 131/62 96 Room Air 06/02/24 11:14 76 20 N/A Room Air 06/02/24 11:12 76 18 06/02/24 08:00 97 Room Air* 0 21 06/02/24 07:40 97.5 70 18 133/65 97 Room Air 06/02/24 07:00 75 20 N/A Room Air 06/02/24 06:59 75 18 LABS: Hematology Labs: Test 06/02/24 03:46 06/01/24 13:35 Range/Units White Blood Count 7.2 # 4.8-10.8 K/uL Red Blood Count 3.19 L 4.00-5.50 MIL/uL Hemoglobin 9.6 L 12.0-16.0 g/dL Hematocrit 28.0 L 36-48 % Mean Corpuscular Volume 87.8 79-99 fL Mean Corpuscular Hemoglobin 30.1 27.0-33.0 pg Mean Corpuscular Hemoglobin Concent 34.3 32.0-36.0 g/dL Red Cell Distribution Width 14.6 11.0-15.5 % Platelet Count 222 130-400 K/uL Mean Platelet Volume 10.3 7.5-10.5 fL Nucleated Red Blood Cells 0.0 0.0-0.19 % Immature Granulocyte % (Auto) 0.4 0-1 % Neutrophils (%) (Auto) 77.4 H 40.0-77.0 % Lymphocytes (%) (Auto) 9.9 L 21.0-51.0 % Monocytes (%) (Auto) 9.2 3.0-13.0 % Eosinophils (%) (Auto) 2.6 0.0-8.0 % Basophils (%) (Auto) 0.5 0.0-5.0 % Neutrophils # (Auto) 8.1 H 1.8-7.7 K/uL Lymphocytes # (Auto) 1.0 1.0-4.8 K/uL Monocytes # (Auto) 1.0 0.1-1.0 K/uL Eosinophils # (Auto) 0.27 0.00-0.70 K/uL Basophils # (Auto) 0.05 0.00-0.20 K/uL Absolute Immature Granulocyte (auto 0.04 0-1 K/uL White Cell Morphology Comment See comments Chemistry Labs: Test 06/02/24 03:46 06/01/24 13:35 Range/Units Sodium Level 142 136-145 mmol/L Potassium Level 3.7 3.5-5.1 mmol/L Chloride Level 107 101-111 mmol/L Carbon Dioxide Level 26 21-32 mmol/L Blood Urea Nitrogen 36 H 7-18 mg/dL Creatinine 1.9 H 0.5-1.0 mg/dL Glomerular Filtration Rate Calc 27 >90 mL/min Random Glucose 97 70-105 mg/dL Total Calcium 8.6 8.5-10.1 mg/dL Magnesium Level 2.00 1.80-2.40 mg/dL Total Bilirubin 0.4 0.2-1.0 mg/dL Aspartate Amino Transf (AST/SGOT) 15 10-37 U/L Alanine Aminotransferase (ALT/SGPT) 23 12-78 U/L Alkaline Phosphatase 87 50-136 U/L Total Protein 5.8 L 6.0-8.3 g/dL Albumin 2.7 L 3.5-5.0 g/dL Total Creatine Kinase 44 21-232 U/L Troponin I High Sensitivity 16 4-50 ng/L B-Type Natriuretic Peptide 80 0-100 pg/mL Coagulation Labs: Test 06/01/24 13:35 Range/Units Prothrombin Time 11.1 9.6-11.6 SEC Prothromb Time International Ratio 1.03 0.85-1.15 Activated Partial Thromboplast Time 29.0 26.3-35.5 SEC DIAGNOSTICS / RADIOLOGY RESULTS: NA PLAN NEURO: Minimize central acting medications as possible. Maintain fall precautions, adequate lighting during the day PULMONARY: Supplemental 02 as needed. Maintain aspiration precautions at all times CARDIOVASCULAR: Follow hemodynamics. Vital signs per facility protocol GI & NUTRITION: Continue with nutritional support. Continue stool softeners and laxatives as needed. KIDNEYS & ELECTROLYTES: Strict monitoring of intake, output and overall fluid balance. Avoid nephrotoxic medications to the extent possible. Medications to be dosed according to renal function. Monitor electrolytes and replace as needed ENDOCRINE: Maintain blood glucose between 100-180 at all times. Hypoglycemia protocol in place INFECTIOUS DISEASE: Trend temperature, WBC and procalcitonin level Follow cultures, deescalate antibiotics as soon as possible. Panculture if new onset fever ONCOLOGY/HEMATOLOGY/COAGULATION: Monitor for s/s of bleeding Monitor hemoglobin, coagulation studies as needed SKIN: Pressure ulcer prevention per facility protocol Specialty mattress ORTHO/REHAB: Continue PT/OT Prophylaxis: Continue GI and DVT prophylaxis Code Status: Full Resuscitation Disposition: PER PRIMARY TEAM Other: Total patient care time: 35 minutes Case discussed with supervising physician plan of care agreed upon LAMONTE JACKSON Jun 02, 2024 14:26
--- NOTE | 2024-06-02 15:40 | PN ---
[facility] PROGRESS NOTE Date of Service: Jun 02, 2024 Time of Service: 15:31 SUBJECTIVE: 06/02 patient seen at bedside, no acute events overnight. She reports improvement in breathing however she still has a prominent wheeze. Patient on nebulizer treatments, we will start prednisone 40 mg Q 24 hours for seven days. We will start daily peak flows to assess improvement in respiratory status. Follow up with Pulmonary for further recommendations. Creatinine improved from 2.0 down to 1.9, remainder of her labs are relatively unremarkable. REVIEW OF SYSTEMS 12 point review of systems negative unless noted in HPI PHYSICAL EXAM GENERAL APPEARANCE: The patient is awake, alert, and oriented, in no acute cardiopulmonary distress. NEUROLOGICAL: Cranial nerves II-XII grossly intact. Motor is 5/5 in bilateral upper and lower extremities proximal to distal. No sensory deficits. HEENT: Face is symmetric. Pupils are equal and reactive. Extraocular movements are intact. NECK: Supple. No JVD. No thyromegaly. No submental, submandibular, pre- /postauricular, occipital or supraclavicular lymphadenopathy. CHEST: Normal chest expansion. No Telemetry. LUNGS: Absence of any rales, rhonchi or any wheezing. CARDIOVASCULAR: Regular. S1 and S2 normal. No appreciable rubs, murmurs or gallops. ABDOMEN: Soft, nontender, and nondistended. There is no rebound, voluntary guarding, or rigidity. : Deferred. No Rosas. EXTREMITIES: Non-edematous and not cyanotic. No clubbing. Good capillary refill. SKIN: No skin breakdown. Vital Signs (last 8hr) Date Time Temp Pulse Resp B/P (MAP) Pulse Ox O2 Delivery O2 Flow Rate FiO2 06/02/24 11:18 97.5 77 18 131/62 96 Room Air 21 06/02/24 11:14 76 20 N/A Room Air 21 06/02/24 11:12 76 18 06/02/24 08:00 97 Room Air* 0 21 06/02/24 07:40 97.5 70 18 133/65 97 Room Air 21 LABS: Laboratory: Test 06/02/24 10:23 06/02/24 03:46 06/01/24 14:35 06/01/24 13:35 Range/Units Blood Gas Specimen Type Arterial Arterial Blood pH 7.383 7.350-7.450 Arterial Blood Partial Pressure CO2 33 32-45 mmHg Arterial Blood Partial Pressure O2 79.7 L 83.0-108.0 mmHg Arterial Blood HCO3 19.0 L 21.0-28.0 mmol/L Arterial Blood Oxygen Saturation 95.7 94.0-98.0 % Arterial Blood Base Excess -5.0 L -2.0-3.0 mmol/L Blood Gas Temperature 37.0 35.5-37.0 CELSIUS Blood Gas Vent Mode RA ROOM AIR FiO2 21.0 % Blood Gas Specimen Comment RR KONRAD White Blood Count 7.2 # 4.8-10.8 K/uL Red Blood Count 3.19 L 4.00-5.50 MIL/uL Hemoglobin 9.6 L 12.0-16.0 g/dL Hematocrit 28.0 L 36-48 % Mean Corpuscular Volume 87.8 79-99 fL Mean Corpuscular Hemoglobin 30.1 27.0-33.0 pg Mean Corpuscular Hemoglobin Concent 34.3 32.0-36.0 g/dL Red Cell Distribution Width 14.6 11.0-15.5 % Platelet Count 222 130-400 K/uL Mean Platelet Volume 10.3 7.5-10.5 fL Nucleated Red Blood Cells 0.0 0.0-0.19 % Sodium Level 142 136-145 mmol/L Potassium Level 3.7 3.5-5.1 mmol/L Chloride Level 107 101-111 mmol/L Carbon Dioxide Level 26 21-32 mmol/L Blood Urea Nitrogen 36 H 7-18 mg/dL Creatinine 1.9 H 0.5-1.0 mg/dL Glomerular Filtration Rate Calc 27 >90 mL/min Random Glucose 97 70-105 mg/dL Total Calcium 8.6 8.5-10.1 mg/dL Magnesium Level 2.00 1.80-2.40 mg/dL Total Bilirubin 0.4 0.2-1.0 mg/dL Aspartate Amino Transf (AST/SGOT) 15 10-37 U/L Alanine Aminotransferase (ALT/SGPT) 23 12-78 U/L Alkaline Phosphatase 87 50-136 U/L Total Protein 5.8 L 6.0-8.3 g/dL Albumin 2.7 L 3.5-5.0 g/dL Mycoplasma pneumoniae IgM Antibody NEGATIVE NEGATIVE Urine Color YELLOW YELLOW Urine Appearance CLEAR CLEAR Urine pH 5.5 5.0-8.0 Urine Specific Leonore 1.020 1.001-1.031 Urine Protein 10 H NEGATIVE mg/dL Urine Glucose (UA) NEGATIVE NEGATIVE mg/dL Urine Ketones NEGATIVE NEGATIVE mg/dL Urine Occult Blood NEGATIVE NEGATIVE Urine Nitrate NEGATIVE NEGATIVE Urine Bilirubin NEGATIVE NEGATIVE mg/dL Urine Urobilinogen 0.2 0.2-1.0 mg/dL Urine Leukocyte Esterase 250 H NEGATIVE Francesca/uL Urine RBC 0-1 0-1 /HPF Urine WBC 11-25 H 0-1 /HPF Urine Squamous Epithelial Cells RARE 0-2 /HPF Urine Bacteria FEW None Seen /HPF Urine Hyaline Casts 2-5 H 0-1 /LPF /LPF Immature Granulocyte % (Auto) 0.4 0-1 % Neutrophils (%) (Auto) 77.4 H 40.0-77.0 % Lymphocytes (%) (Auto) 9.9 L 21.0-51.0 % Monocytes (%) (Auto) 9.2 3.0-13.0 % Eosinophils (%) (Auto) 2.6 0.0-8.0 % Basophils (%) (Auto) 0.5 0.0-5.0 % Neutrophils # (Auto) 8.1 H 1.8-7.7 K/uL Lymphocytes # (Auto) 1.0 1.0-4.8 K/uL Monocytes # (Auto) 1.0 0.1-1.0 K/uL Eosinophils # (Auto) 0.27 0.00-0.70 K/uL Basophils # (Auto) 0.05 0.00-0.20 K/uL Absolute Immature Granulocyte (auto 0.04 0-1 K/uL White Cell Morphology Comment See comments Prothrombin Time 11.1 9.6-11.6 SEC Prothromb Time International Ratio 1.03 0.85-1.15 Activated Partial Thromboplast Time 29.0 26.3-35.5 SEC Total Creatine Kinase 44 21-232 U/L Troponin I High Sensitivity 16 4-50 ng/L B-Type Natriuretic Peptide 80 0-100 pg/mL Influenza Type A Antigen Negative For Type A NEGATIVE Influenza Type B Antigen Negative For Type B NEGATIVE SARS-CoV-2, RNA, NAAT NEGATIVE SARS CoV-2 NEGATIVE Current Medications Medications (Trade) Dose Ordered Sig/Baldev Route PRN Reason Start Time Stop Time Status Last Admin Dose Admin Acetaminophen (TYLenol 325MG TAB) 650 mg Q4H PRN PO TEMPERATURE GREATER THAN 101.5 06/01/24 16:30 07/01/24 16:29 Acetaminophen (TYLenol 325MG TAB) 650 mg Q6H PRN PO MILD PAIN (1-3) 06/01/24 16:30 07/01/24 16:29 Acetylcysteine (MUComyst 20% 4ML) 400mg = 2ml [id number] IH 06/02/24 18:00 07/02/24 17:59 Albuterol (DUOneb) 1 udvial [id number] PRN IH sob/wheeze 06/01/24 23:30 07/01/24 23:29 Benzonatate (Tessalon 100mg Caps) 100 mg Q8H PRN PO COUGH 06/01/24 23:30 07/01/24 23:29 06/02/24 12:25 100 MG Budesonide (Pulmicort 0.25mg/2ml) 0.25 mg BIDRESP IH 06/02/24 06:00 07/02/24 05:59 06/02/24 06:59 0.25 MG Enoxaparin Sodium (Lovenox) 30 mg DAILY SQ 06/02/24 09:00 07/02/24 08:59 06/02/24 09:11 30 MG Famotidine (Pepcid 20mg Vial) 20 mg DAILY IV 06/01/24 21:00 07/01/24 20:59 06/02/24 09:09 20 MG Ipratropium [place] (AtrovENT UD) 0.5 MG [id number] IH 06/01/24 18:00 07/01/24 17:59 06/02/24 11:12 0.5 MG Levofloxacin/ Dextrose 50 ml @ 100 mls/hr Q48H IVPB 06/03/24 17:00 06/13/24 16:59 Levofloxacin/ Dextrose 100 ml @ 100 mls/hr Q24H IV 06/01/24 16:30 06/01/24 16:35 DC Magnesium Sulfate 50 ml @ 0 mls/hr PROTOCOL IV 06/01/24 15:00 06/02/24 09:11 DC 06/01/24 16:25 25 MLS/HR Magnesium Sulfate 50 ml @ 0 mls/hr PROTOCOL PRN IV MAGNESIUM PROTOCOL 06/01/24 17:00 07/01/24 16:59 Ondansetron HCl (zoFRAN 4MG INJ) 4 mg Q6H PRN IVP NAUSEA/VOMITING 06/01/24 16:30 07/01/24 16:29 Potassium Chloride 100 ml @ 100 mls/hr AD PRN IV POTASSIUM PROTOCOL 06/01/24 17:00 07/01/24 16:59 Potassium Chloride 100 ml @ 100 mls/hr AD PRN IV POTASSIUM PROTOCOL 06/01/24 17:00 06/02/24 09:11 DC Potassium Chloride (K-Dur 10meq Sr Tab) 10 meq AD PRN PO POTASSIUM PROTOCOL 06/02/24 09:30 07/01/24 16:59 Potassium Chloride (K-Dur/Klor-Con 20meq) 10 meq AD PRN PO POTASSIUM PROTOCOL 06/01/24 17:00 06/02/24 09:11 DC Potassium Chloride (KCl 10% Elixir 20meq/15ml) 10 meq AD PRN PO POTASSIUM PROTOCOL 06/01/24 17:00 07/01/24 16:59 Potassium Chloride (KCl 10% Elixir 20meq/15ml) 10 meq AD PRN PO POTASSIUM PROTOCOL 06/01/24 17:00 06/02/24 09:11 DC Sodium Chloride 1,000 ml @ 75 mls/hr [id number] IV 06/02/24 00:00 06/03/24 23:00 06/01/24 23:59 75 MLS/HR DIAGNOSTICS / RADIOLOGY: [ ] ASSESSMENT: Acute respiratory distress, POA Chronic obstructive pulmonary disease exacerbation, POA Acute on chronic kidney failure, stage IV Hypomagnesemia, POA Hypertension PLAN: Patient will continue with oxygen supplementation to keep O2 sat greater than 92% Pulmonology consulted, appreciate recommendations Continue DuoNebs, budesonide Start prednisone 40 mg daily for seven days Continue with levofloxacin Patient will be on oxygen supplementation to keep O2 sat greater than 92% We will repeat magnesium per protocol We will monitor electrolytes daily GI and DVT prophylaxis Repeat labs tomorrow Patient will have heart healthy diet Disposition: Pending improvement in respiratory status, pulmonology recommendations FRANCY RIOS MD Jun 02, 2024 15:40
[2024-06-02] MEDS: predniSONE 20 MG TABLET PO SCH (16:20)
--- NOTE | 2024-06-02 17:20 | HMCSR ---
APPROVED REPORT EXAM: Two-dimensional and M-mode echocardiogram with Doppler and color Doppler. INDICATION ICD: Dyspnea 2D Dimensions RVDd3.5 cmLVEF(%)43.0 (>50%)LVED Vol(simp.)69.0 mL IVSd0.8 (0.7-1.1cm)FS(%)21 %LVES Vol(simp.)29.0 mL LVDd4.7 (3.8-5.6cm)LA (2D)3.2 (1.6-4.0cm)LVEF(%, simp.)58 % PWd1.2 (0.7-1.1cm)LVOT diam2.0 (1.8-2.4cm)LA ESV INDEX (4CH)20.60 mL/m2 IVSs1.4 cmIVC diam1.8 cmLA ESV INDEX (2CH)26.60 mL/m2 LVDs3.7 (2.5-4.0cm)LA ESV INDEX (BP)23.70 mL/m2 PWs1.5 cm M-Mode Dimensions EPSS1.1 cm Ao Root(MM)1.9 (2.0-3.7cm) Aortic Valve AoV VTI0.3 mAo Mean GR6.0 mmHgLVOT VTI0.29 m JOEY (VMAX)2.8 cm2AVA (VTI) 2.8 cm2 Mitral Valve MV E Izvr525.2 cm/sDECEL Nyny131 ms MV A Vmax96.7 cm/sP 1/2 T68 ms E/A ratio1.1MVA (PHT)3.2 cm2 MR Max PG23 mmHg TDI E/E' Cebuzc94.2E/E' Nhhidev36.2 Medial E' Peak V4.60 cm/sLateral E' Peak V4.60 cm/s Left Ventricle The left ventricle is normal size. There is normal left ventricular wall thickness. LVEF is 55-60%. I ndeterminate diastolic dysfunction. Right Ventricle The right ventricle is normal size. The right ventricular systolic function is normal. Atria The left atrium size is normal. The right atrium size is normal. Aortic Valve The aortic valve is normal in structure. No aortic regurgitation is present. There is no aortic valvu lar stenosis. Mitral Valve The mitral valve is normal in structure. Mild mitral annular calcification present. Mitral regurgitat ion is trace. There is no mitral valve stenosis. Tricuspid Valve The tricuspid valve is normal in structure. There is no tricuspid valve regurgitation noted. Pulmonic Valve The pulmonary valve is normal in structure. There is no pulmonic valvular regurgitation. Great Vessels The aortic root is normal in size. The IVC is normal in size and collapses >50% with inspiration. Pericardium There is no pericardial effusion. Conclusion The left ventricle is normal size. LVEF is 55-60%. Indeterminate diastolic dysfunction. The right ventricle is normal size. The right ventricular systolic function is normal. The left atrium size is normal. The right atrium size is normal. No valvular pathology. There is no pericardial effusion.
[2024-06-02] MEDS: acetylCYSTeine 20% 200MG/ML 4ML VIAL IH SCH (19:08)
--- NOTE | 2024-06-02 20:00 | NUR ---
PIV PT'S PIV ACCIDENTALLY GOT PULLED OUT WITH CATHETER INTACT. CN MISTY IN AND ATTENDED TO PT.
--- NOTE | 2024-06-02 20:40 | NUR ---
PAGED PT REFUSED PIV RE-INSERTION, CLAIMS OF BEING A HARD STICK. PT ASKED TO JUST USE HER PORT A CATH. ASSURED PT TO ASK PRACTITIONER. PAGED DRILL SERGEANT COLOR CARD MAKER FOR HOSPITALIST, VIA ANSWERING SERVICE. AWAITING CALL BACK.
--- NOTE | 2024-06-02 20:54 | NUR ---
METAL DOOR ASSEMBLER CHAVA NUÑEZ CALLED BACK FOR HOSPITALIST. REFERRED IV ACCESS AND CLAIMS DOES NOT WANT TO TOUCH PORT IF NOT CLEARED BY ONCOLOGY. NEW ORDERS FOR ONCOLOGY CONSULT RECEIVED, PLEASE REFER TO CPOE. PAGED DR LUNA VIA ANSWERING SERVICE. METAL DOOR ASSEMBLER RELIEF SALESPERSON HERACLIO ANSWERED PAGE. CHAVA PULLIAM INFORMED OF CONSULT AND PT'S POOR PIV ACCESS AND IF PORT A CATH CAN BE ACCESSED, ORDER RECEIVED FOR PORT TO BE ACCESSED, PLEASE REFER TO CPOE.
--- NOTE | 2024-06-02 21:00 | NUR ---
MEDS SHIFT ASSESSMENT DONE, PLEASE REFER TO CHART. DUE MEDS ADMINISTERED, TOLERATED WELL. RIGHT PORT A CATH ACCESSED USING ASEPTIC TECHNIQUE WITH G20 BRAND NEEDLE, PT TOLERATED WELL. RE-STARTED IVF OF NS REGULATED AT 75CC/HR. KEPT RESTED AND COMFORTABLE IN BED. CALL LIGHT WITHIN REACH. ENCOURAGED TO REST AND SLEEP. RE-ITERATED ON FALL PRECAUTIONS.
[2024-06-02] MEDS: carVEDIlol 12.5 MG TABLET PO SCH (21:03)
[2024-06-02] MEDS: amLODIPine 5 MG TAB PO SCH (21:03)
[2024-06-02] MEDS: atorVAStatin 10 MG TABLET PO SCH (21:03)
[2024-06-03] VITALS (13 sets, daily range): BP systolic 121–144; BP diastolic 62–75; PULSE 78–91; RESP 18–20; TEMP 97.4–98.3; O2SAT 97–98
--- NOTE | 2024-06-03 05:13 | NUR ---
ROUNDS PT SLEPT AT INTERVALS DURING THE SHIFT. COUGHING EPISODES STILL NOTED DURING THE SHIFT. NEW IVF OF NS BAG HUNG. KEPT UNDISTURBED FOR NOW. FOR MORE CARE.
[2024-06-03] MEDS: LoSARTan 100 MG TABLET PO SCH (09:12)
--- NOTE | 2024-06-03 14:10 | PN ---
[facility] PROGRESS NOTE Date of Service: Jun 03, 2024 Time of Service: 14:08 SUBJECTIVE: 06/02 patient seen at bedside, no acute events overnight. She reports improvement in breathing however she still has a prominent wheeze. Patient on nebulizer treatments, we will start prednisone 40 mg Q 24 hours for seven days. We will start daily peak flows to assess improvement in respiratory status. Follow up with Pulmonary for further recommendations. Creatinine improved from 2.0 down to 1.9, remainder of her labs are relatively unremarkable. 06/03 patient seen at bedside, no acute events overnight. Her wheezing has resolved, pulmonology evaluated her and wants her to stay for treatment for one more day. Her vitals are relatively unremarkable. She was given a lab holiday today, repeat labs tomorrow REVIEW OF SYSTEMS 12 point review of systems negative unless noted in HPI PHYSICAL EXAM GENERAL APPEARANCE: The patient is awake, alert, and oriented, in no acute c ardiopulmonary distress. NEUROLOGICAL: Cranial nerves II-XII grossly intact. Motor is 5/5 in bilateral upper and lower extremities proximal to distal. No sensory deficits. HEENT: Face is symmetric. Pupils are equal and reactive. Extraocular movements are intact. NECK: Supple. No JVD. No thyromegaly. No submental, submandibular, pre- /postauricular, occipital or supraclavicular lymphadenopathy. CHEST: Normal chest expansion. No Telemetry. LUNGS: Absence of any rales, rhonchi or any wheezing. CARDIOVASCULAR: Regular. S1 and S2 normal. No appreciable rubs, murmurs or gallops. ABDOMEN: Soft, nontender, and nondistended. There is no rebound, voluntary guarding, or rigidity. : Deferred. No Rosas. EXTREMITIES: Non-edematous and not cyanotic. No clubbing. Good capillary refill. SKIN: No skin breakdown. Vital Signs (last 8hr) Date Time Temp Pulse Resp B/P (MAP) Pulse Ox O2 Delivery O2 Flow Rate FiO2 06/03/24 12:00 97.3 80 18 140/62 97 06/03/24 11:30 82 18 06/03/24 09:12 141/75 06/03/24 08:30 79 20 N/A Room Air 21 06/03/24 08:00 97.9 91 18 144/75 99 Room Air 12/10/24 07:20 79 18 LABS: Laboratory: Test 06/02/24 10:23 06/02/24 03:46 06/01/24 14:35 Range/Units Blood Gas Specimen Type Arterial Arterial Blood pH 7.383 7.350-7.450 Arterial Blood Partial Pressure CO2 33 32-45 mmHg Arterial Blood Partial Pressure O2 79.7 L 83.0-108.0 mmHg Arterial Blood HCO3 19.0 L 21.0-28.0 mmol/L Arterial Blood Oxygen Saturation 95.7 94.0-98.0 % Arterial Blood Base Excess -5.0 L -2.0-3.0 mmol/L Blood Gas Temperature 37.0 35.5-37.0 CELSIUS Blood Gas Vent Mode RA ROOM AIR FiO2 21.0 % Blood Gas Specimen Comment RR KONRAD White Blood Count 7.2 # 4.8-10.8 K/uL Red Blood Count 3.19 L 4.00-5.50 MIL/uL Hemoglobin 9.6 L 12.0-16.0 g/dL Hematocrit 28.0 L 36-48 % Mean Corpuscular Volume 87.8 79-99 fL Mean Corpuscular Hemoglobin 30.1 27.0-33.0 pg Mean Corpuscular Hemoglobin Concent 34.3 32.0-36.0 g/dL Red Cell Distribution Width 14.6 11.0-15.5 % Platelet Count 222 130-400 K/uL Mean Platelet Volume 10.3 7.5-10.5 fL Nucleated Red Blood Cells 0.0 0.0-0.19 % Sodium Level 142 136-145 mmol/L Potassium Level 3.7 3.5-5.1 mmol/L Chloride Level 107 101-111 mmol/L Carbon Dioxide Level 26 21-32 mmol/L Blood Urea Nitrogen 36 H 7-18 mg/dL Creatinine 1.9 H 0.5-1.0 mg/dL Glomerular Filtration Rate Calc 27 >90 mL/min Random Glucose 97 70-105 mg/dL Total Calcium 8.6 8.5-10.1 mg/dL Magnesium Level 2.00 1.80-2.40 mg/dL Total Bilirubin 0.4 0.2-1.0 mg/dL Aspartate Amino Transf (AST/SGOT) 15 10-37 U/L Alanine Aminotransferase (ALT/SGPT) 23 12-78 U/L Alkaline Phosphatase 87 50-136 U/L Total Protein 5.8 L 6.0-8.3 g/dL Albumin 2.7 L 3.5-5.0 g/dL Mycoplasma pneumoniae IgM Antibody NEGATIVE NEGATIVE Urine Color YELLOW YELLOW Urine Appearance CLEAR CLEAR Urine pH 5.5 5.0-8.0 Urine Specific Vancleve 1.020 1.001-1.031 Urine Protein 10 H NEGATIVE mg/dL Urine Glucose (UA) NEGATIVE NEGATIVE mg/dL Urine Ketones NEGATIVE NEGATIVE mg/dL Urine Occult Blood NEGATIVE NEGATIVE Urine Nitrate NEGATIVE NEGATIVE Urine Bilirubin NEGATIVE NEGATIVE mg/dL Urine Urobilinogen 0.2 0.2-1.0 mg/dL Urine Leukocyte Esterase 250 H NEGATIVE Francesca/uL Urine RBC 0-1 0-1 /HPF Urine WBC 11-25 H 0-1 /HPF Urine Squamous Epithelial Cells RARE 0-2 /HPF Urine Bacteria FEW None Seen /HPF Urine Hyaline Casts 2-5 H 0-1 /LPF /LPF Current Medications Medications (Trade) Dose Ordered Sig/Baldev Route PRN Reason Start Time Stop Time Status Last Admin Dose Admin Acetaminophen (TYLenol 325MG TAB) 650 mg Q4H PRN PO TEMPERATURE GREATER THAN 101.5 06/01/24 16:30 07/01/24 16:29 Acetaminophen (TYLenol 325MG TAB) 650 mg Q6H PRN PO MILD PAIN (1-3) 06/01/24 16:30 07/01/24 16:29 Acetylcysteine (MUComyst 20% 4ML) 400mg = 2ml [id number] IH 06/02/24 18:00 07/02/24 17:59 06/03/24 11:30 800 MG Albuterol (DUOneb) 1 udvial [id number] PRN IH sob/wheeze 06/01/24 23:30 07/01/24 23:29 Amlodipine Besylate (NorvASC 5MG TAB) 5 mg HS PO 06/02/24 21:00 07/02/24 20:59 06/02/24 21:03 5 MG Atorvastatin Calcium (LIPItor 10MG) 10 mg HS PO 06/02/24 21:00 07/02/24 20:59 06/02/24 21:03 10 MG Benzonatate (Tessalon 100mg Caps) 100 mg Q8H PRN PO COUGH 06/01/24 23:30 07/01/24 23:29 06/02/24 21:36 100 MG Budesonide (Pulmicort 0.25mg/2ml) 0.25 mg BIDRESP IH 06/02/24 06:00 07/02/24 05:59 06/03/24 07:20 0.25 MG Carvedilol (Coreg 12.5MG) 12.5 mg BID PO 06/02/24 21:00 07/02/24 20:59 06/03/24 09:12 12.5 MG Enoxaparin Sodium (Lovenox) 30 mg DAILY SQ 06/02/24 09:00 07/02/24 08:59 06/03/24 09:14 30 MG Famotidine (Pepcid 20mg Vial) 20 mg DAILY IV 06/01/24 21:00 07/01/24 20:59 06/03/24 09:12 20 MG Ipratropium [place] (AtrovENT UD) 0.5 MG [id number] IH 06/01/24 18:00 07/01/24 17:59 06/03/24 11:30 0.5 MG Levofloxacin/ Dextrose 50 ml @ 100 mls/hr Q48H IVPB 06/03/24 17:00 06/13/24 16:59 Levofloxacin/ Dextrose 100 ml @ 100 mls/hr Q24H IV 06/01/24 16:30 06/01/24 16:35 DC Losartan Potassium (CozAAR 100MG TAB) 100 mg DAILY PO 06/03/24 09:00 07/03/24 08:59 06/03/24 09:12 100 MG Magnesium Sulfate 50 ml @ 0 mls/hr PROTOCOL IV 06/01/24 15:00 06/02/24 09:11 DC 06/01/24 16:25 25 MLS/HR Magnesium Sulfate 50 ml @ 0 mls/hr PROTOCOL PRN IV MAGNESIUM PROTOCOL 06/01/24 17:00 07/01/24 16:59 Ondansetron HCl (zoFRAN 4MG INJ) 4 mg Q6H PRN IVP NAUSEA/VOMITING 06/01/24 16:30 07/01/24 16:29 Potassium Chloride 100 ml @ 100 mls/hr AD PRN IV POTASSIUM PROTOCOL 06/01/24 17:00 07/01/24 16:59 Potassium Chloride 100 ml @ 100 mls/hr AD PRN IV POTASSIUM PROTOCOL 06/01/24 17:00 06/02/24 09:11 DC Potassium Chloride (K-Dur 10meq Sr Tab) 10 meq AD PRN PO POTASSIUM PROTOCOL 06/02/24 09:30 07/01/24 16:59 Potassium Chloride (K-Dur/Klor-Con 20meq) 10 meq AD PRN PO POTASSIUM PROTOCOL 06/01/24 17:00 06/02/24 09:11 DC Potassium Chloride (KCl 10% Elixir 20meq/15ml) 10 meq AD PRN PO POTASSIUM PROTOCOL 06/01/24 17:00 07/01/24 16:59 Potassium Chloride (KCl 10% Elixir 20meq/15ml) 10 meq AD PRN PO POTASSIUM PROTOCOL 06/01/24 17:00 06/02/24 09:11 DC Prednisone (deltaSONE/ oraSONE 20MG TAB) 40 mg DAILY PO 06/02/24 16:00 07/02/24 15:59 06/03/24 09:11 40 MG Sodium Chloride 1,000 ml @ 75 mls/hr [id number] IV 06/02/24 00:00 06/03/24 23:00 06/03/24 05:13 75 MLS/HR DIAGNOSTICS / RADIOLOGY: [ ] ASSESSMENT: Acute respiratory distress, POA Chronic obstructive pulmonary disease exacerbation, POA Acute on chronic kidney failure, stage IV Hypomagnesemia, POA Hypertension PLAN: Patient will continue with oxygen supplementation to keep O2 sat greater than 92% Pulmonology consulted, appreciate recommendations Continue DuoNebs, budesonide Continue prednisone 40 mg daily for seven days Continue with levofloxacin Patient will be on oxygen supplementation to keep O2 sat at 92% GI and DVT prophylaxis Repeat labs tomorrow Patient will have heart healthy diet Disposition: Pending pulmonology clearance FRANCY RIOS MD Jun 03, 2024 14:10
--- NOTE | 2024-06-03 15:37 | PN ---
[facility] PROGRESS NOTE Date Patient Seen: Jun 03, 2024 Time of Visit: 15:29 Supervising Physician: ALICE PIPER MD Primary Care Physician: [Dr. Nohemy Alicia ] Outpatient Specialists: [ ] Inpatient Consults: [[facility] team-pulmo consult ] PROBLEM LIST: Acute COPD exacerbation . Community-acquired pneumonia in the setting of immunocompromise state-POA ELI on CKD stabe IV Hypomagnesemia-POA Right pleural effusion on CXR-POA,resolved History of right lung cancer, currently not on chemotherapy or immunomodulator due to intolerance of treatment Ppm in Situ Primary hypertension Former smoker INTERVAL HISTORY: She was seen and examined today by me at bedside, the patient continues weak but improved currently saturating 97-99% on room air without tachypnea. She continues with wheezing noted to the right apex otherwise fair air entry. Continues with occasional cough, nonproductive. No sore throat, no chest pain. She continues on Levaquin as well as Mucomyst, Pulmicort Atrovent and prednisone. REVIEW OF SYSTEMS: 12 point ROS reviewed with patient. Pertinent positives mentioned above. Otherwise negative. PHYSICAL EXAM: GENERAL: alert, awake oriented x 3, not in acute distress HEENT: EOMI, Sclera non icteric, moist mucosa NECK: Supple, no JVD, trachea midline LUNGS: Fair air entry, wheezing noted to right apex HEART: Regular rate and rhythm. Normal S1 and S2, without murmurs ABD: Abdomen soft, nontender. Bowel sounds present EXT: No clubbing cyanosis or edema NEURO: Alert and oriented to person, follows commands Vital Signs (last 8hr) Date Time Temp Pulse Resp B/P (MAP) Pulse Ox O2 Delivery O2 Flow Rate FiO2 06/03/24 12:00 97.3 80 18 140/62 97 06/03/24 11:30 82 18 06/03/24 09:12 141/75 06/03/24 08:30 79 20 N/A Room Air 21 06/03/24 08:00 97.9 91 18 144/75 99 Room Air LABS: Hematology Labs: Test 06/02/24 03:46 Range/Units White Blood Count 7.2 # 4.8-10.8 K/uL Red Blood Count 3.19 L 4.00-5.50 MIL/uL Hemoglobin 9.6 L 12.0-16.0 g/dL Hematocrit 28.0 L 36-48 % Mean Corpuscular Volume 87.8 79-99 fL Mean Corpuscular Hemoglobin 30.1 27.0-33.0 pg Mean Corpuscular Hemoglobin Concent 34.3 32.0-36.0 g/dL Red Cell Distribution Width 14.6 11.0-15.5 % Platelet Count 222 130-400 K/uL Mean Platelet Volume 10.3 7.5-10.5 fL Nucleated Red Blood Cells 0.0 0.0-0.19 % Chemistry Labs: Test 06/02/24 03:46 Range/Units Sodium Level 142 136-145 mmol/L Potassium Level 3.7 3.5-5.1 mmol/L Chloride Level 107 101-111 mmol/L Carbon Dioxide Level 26 21-32 mmol/L Blood Urea Nitrogen 36 H 7-18 mg/dL Creatinine 1.9 H 0.5-1.0 mg/dL Glomerular Filtration Rate Calc 27 >90 mL/min Random Glucose 97 70-105 mg/dL Total Calcium 8.6 8.5-10.1 mg/dL Magnesium Level 2.00 1.80-2.40 mg/dL Total Bilirubin 0.4 0.2-1.0 mg/dL Aspartate Amino Transf (AST/SGOT) 15 10-37 U/L Alanine Aminotransferase (ALT/SGPT) 23 12-78 U/L Alkaline Phosphatase 87 50-136 U/L Total Protein 5.8 L 6.0-8.3 g/dL Albumin 2.7 L 3.5-5.0 g/dL DIAGNOSTICS / RADIOLOGY RESULTS: CT chest reviewed. There is pleural thickening and volume loss in the right lower lobe PLAN NEURO: Minimize central acting medications as possible. Maintain fall precautions, adequate lighting during the day PULMONARY: Supplemental 02 as needed. Maintain aspiration precautions at all times Patient to continue with current treatment for 24 more hours, recommend outpatient pulmonary follow up as scheduled for continued workup. CARDIOVASCULAR: Follow hemodynamics. Vital signs per facility protocol GI & NUTRITION: Continue with nutritional support. Continue stool softeners and laxatives as needed. KIDNEYS & ELECTROLYTES: Strict monitoring of intake, output and overall fluid balance. Avoid nephrotoxic medications to the extent possible. Medications to be dosed according to renal function. Monitor electrolytes and replace as needed ENDOCRINE: Maintain blood glucose between 100-180 at all times. Hypoglycemia protocol in place INFECTIOUS DISEASE: Trend temperature, WBC and procalcitonin level Follow cultures, deescalate antibiotics as soon as possible. Panculture if new onset fever ONCOLOGY/HEMATOLOGY/COAGULATION: Monitor for s/s of bleeding Monitor hemoglobin, coagulation studies as needed SKIN: Pressure ulcer prevention per facility protocol Specialty mattress ORTHO/REHAB: Continue PT/OT Prophylaxis: Continue GI and DVT prophylaxis Code Status: Full Resuscitation Disposition: PER PRIMARY TEAM Other: Total patient care time: 35 minutes Case discussed with supervising physician plan of care agreed upon GALO TAVERAS Jun 03, 2024 15:37
[2024-06-03] MEDS: levoFLOXacin 250 MG/D5W 50ML 50 ML IVPB SCH (16:34)
--- NOTE | 2024-06-03 21:20 | NUR ---
MEDS SHIFT ASSESSMENT DONE, PLEASE REFER TO CHART. DUE MEDS ADMINISTERED, TOLERATED WELL. KEPT RESTED AND COMFORTABLE IN BED. CALL LIGHT WITHIN REACH. ENCOURAGED TO REST AND SLEEP.
[2024-06-04] VITALS (17 sets, daily range): BP systolic 125–169; BP diastolic 69–81; PULSE 75–87; RESP 18–20; TEMP 97.6–97.9; O2SAT 94–96
[2024-06-04 04:37] LABS: MEAN CORPUSCULAR HEMOGLOBIN 30.3 pg (27.0-33.0); MEAN CORPUSCULAR HGB CONC 34.6 g/dL (32.0-36.0); MEAN CORPUSCULAR VOLUME 87.5 fL (79-99); RED BLOOD CELL COUNT(AUTO) 3.2 MIL/uL (4.00-5.50); RED CELL DISTRIBUTION WIDTH 14.6 % (11.0-15.5); WHITE BLOOD COUNT (AUTO) 9.3 K/uL (4.8-10.8)
[2024-06-04 04:48] LABS: CREATININE 1.7 mg/dL (0.5-1.0); POTASSIUM 3.6 mmol/L (3.5-5.1)
[2024-06-04] MEDS: PoTASSium chloRIDE 10MEQ SR 10 MEQ/TAB TAB.SR.24H PO PRN (05:37)
--- NOTE | 2024-06-04 05:40 | NUR ---
MEDS PT STILL HAVING COUGHING EPISODES. MEDICATED WITH TESSALON PEARLS AND STARTED ON PO POTASSIUM PER PROTOCOL. TOLERATED MEDS WELL. KEPT RESTED IN BED. FOR MORE CARE.
--- NOTE | 2024-06-04 08:33 | CONS ---
LOCATION: Room 332 HISTORY OF PRESENT ILLNESS: The patient is well known to me. She had carcinoma of the lung, previously on adjuvant therapy. She said last September she got so sick, and was in and out of the hospital. They stopped all her chemotherapy. She has just been on observation. She came in with COPD exacerbation and pneumonia. I am asked to see her for followup. PAST MEDICAL HISTORY: Includes COPD, includes pneumonia, including lung cancer, hypertension. PAST SURGICAL HISTORY: She has had a pacemaker, lung biopsy, otherwise per previous records. MEDICATIONS AT HOME: See intake sheet. ALLERGIES: CODEINE AND CEFACLOR. FAMILY HISTORY: Negative for lung cancer. SOCIAL HISTORY: She is someone not a [place], vacationing down here. REVIEW OF SYSTEMS: Negative currently. PHYSICAL EXAMINATION: GENERAL: Shows elderly woman. VITAL SIGNS: Blood pressure 140/62, pulse 80, respirations 18. HEENT: Benign. CHEST: Clear. ABDOMEN: Soft. ASSESSMENT: * Lung cancer in clinical remission, although she had mediastinal nodes. Obviously, we do know if there is still disease there or not. * Chronic obstructive pulmonary disease exacerbation. * Pneumonia. * Other problems as listed. PLAN: She is doing quite well with her medical treatment. I would be happy to follow up with her in the clinic once she is discharged. TID: [id number] RECEIPT: [id number]
--- NOTE | 2024-06-04 13:24 | PN ---
[facility] PROGRESS NOTE Date of Service: Jun 04, 2024 Time of Service: 13:21 SUBJECTIVE: 06/02 patient seen at bedside, no acute events overnight. She reports improvement in breathing however she still has a prominent wheeze. Patient on nebulizer treatments, we will start prednisone 40 mg Q 24 hours for seven days. We will start daily peak flows to assess improvement in respiratory status. Follow up with Pulmonary for further recommendations. Creatinine improved from 2.0 down to 1.9, remainder of her labs are relatively unremarkable. 06/03 patient seen at bedside, no acute events overnight. Her wheezing has resolved, pulmonology evaluated her and wants her to stay for treatment for one more day. Her vitals are relatively unremarkable. She was given a lab holiday today, repeat labs tomorrow 06/04 patient seen at bedside, no acute events overnight. Today her wheezing is more prominent and she now has upper respiratory symptoms with congestion, cough and runny nose. We will repeat influenza, COVID and order RSV, pulmonology finding to increase her oral prednisone to IV high dose, we will continue with DuoNebs. Her peak flows were mildly decreased from yesterday. Creatinine improved from 1.9 down to 1.7, remainder of her labs are relatively unremarkable. REVIEW OF SYSTEMS 12 point review of systems negative unless noted in HPI PHYSICAL EXAM GENERAL APPEARANCE: The patient is awake, alert, and oriented, in no acute cardiopulmonary distress. NEUROLOGICAL: Cranial nerves II-XII grossly intact. Motor is 5/5 in bilateral upper and lower extremities proximal to distal. No sensory deficits. HEENT: Face is symmetric. Pupils are equal and reactive. Extraocular movements are intact. NECK: Supple. No JVD. No thyromegaly. No submental, submandibular, pre- /postauricular, occipital or supraclavicular lymphadenopathy. CHEST: Normal chest expansion. No Telemetry. LUNGS: Absence of any rales, rhonchi or any wheezing. CARDIOVASCULAR: Regular. S1 and S2 normal. No appreciable rubs, murmurs or gallops. ABDOMEN: Soft, nontender, and nondistended. There is no rebound, voluntary guarding, or rigidity. : Deferred. No Rosas. EXTREMITIES: Non-edematous and not cyanotic. No clubbing. Good capillary refill. SKIN: No skin breakdown. Vital Signs (last 8hr) Date Time Temp Pulse Resp B/P (MAP) Pulse Ox O2 Delivery O2 Flow Rate FiO2 06/04/24 12:00 97.7 82 18 165/81 96 Room Air 06/04/24 11:39 81 18 N/A Room Air 06/04/24 11:36 81 18 06/04/24 09:58 143/69 06/04/24 08:00 97.9 81 19 143/69 95 Room Air 06/04/24 07:07 85 18 N/A Room Air 06/04/24 07:03 85 18 LABS: Laboratory: Test 06/04/24 04:25 Range/Units White Blood Count 9.3 4.8-10.8 K/uL Red Blood Count 3.20 L 4.00-5.50 MIL/uL Hemoglobin 9.7 L 12.0-16.0 g/dL Hematocrit 28.0 L 36-48 % Mean Corpuscular Volume 87.5 79-99 fL Mean Corpuscular Hemoglobin 30.3 27.0-33.0 pg Mean Corpuscular Hemoglobin Concent 34.6 32.0-36.0 g/dL Red Cell Distribution Width 14.6 11.0-15.5 % Platelet Count 243 130-400 K/uL Mean Platelet Volume 9.9 7.5-10.5 fL Nucleated Red Blood Cells 0.0 0.0-0.19 % Sodium Level 145 136-145 mmol/L Potassium Level 3.6 3.5-5.1 mmol/L Chloride Level 111 101-111 mmol/L Carbon Dioxide Level 22 21-32 mmol/L Blood Urea Nitrogen 26 H 7-18 mg/dL Creatinine 1.7 H 0.5-1.0 mg/dL Glomerular Filtration Rate Calc 31 >90 mL/min Random Glucose 126 H 70-105 mg/dL Total Calcium 8.8 8.5-10.1 mg/dL Current Medications Medications (Trade) Dose Ordered Sig/Baldev Route PRN Reason Start Time Stop Time Status Last Admin Dose Admin Acetaminophen (TYLenol 325MG TAB) 650 mg Q4H PRN PO TEMPERATURE GREATER THAN 101.5 06/01/24 16:30 07/01/24 16:29 Acetaminophen (TYLenol 325MG TAB) 650 mg Q6H PRN PO MILD PAIN (1-3) 06/01/24 16:30 07/01/24 16:29 Acetylcysteine (MUComyst 20% 4ML) 400mg = 2ml [id number] IH 06/02/24 18:00 07/02/24 17:59 06/04/24 11:36 800 MG Albuterol (DUOneb) 1 udvial [id number] PRN IH sob/wheeze 06/01/24 23:30 07/01/24 23:29 Amlodipine Besylate (NorvASC 5MG TAB) 5 mg HS PO 06/02/24 21:00 07/02/24 20:59 06/03/24 21:16 5 MG Atorvastatin Calcium (LIPItor 10MG) 10 mg HS PO 06/02/24 21:00 07/02/24 20:59 06/03/24 21:16 10 MG Benzonatate (Tessalon 100mg Caps) 100 mg Q8H PRN PO COUGH 06/01/24 23:30 07/01/24 23:29 06/04/24 05:36 100 MG Budesonide (Pulmicort 0.25mg/2ml) 0.25 mg BIDRESP IH 06/02/24 06:00 07/02/24 05:59 06/04/24 07:03 0.25 MG Carvedilol (Coreg 12.5MG) 12.5 mg BID PO 06/02/24 21:00 07/02/24 20:59 06/04/24 09:58 12.5 MG Enoxaparin Sodium (Lovenox) 30 mg DAILY SQ 06/02/24 09:00 07/02/24 08:59 06/04/24 09:59 30 MG Famotidine (Pepcid 20mg Vial) 20 mg DAILY IV 06/01/24 21:00 07/01/24 20:59 06/04/24 09:59 20 MG Ipratropium [place] (AtrovENT UD) 0.5 MG [id number] IH 06/01/24 18:00 07/01/24 17:59 06/04/24 11:36 0.5 MG Levofloxacin/ Dextrose 50 ml @ 100 mls/hr Q48H IVPB 06/03/24 17:00 06/13/24 16:59 06/03/24 16:34 100 MLS/HR Levofloxacin/ Dextrose 100 ml @ 100 mls/hr Q24H IV 06/01/24 16:30 12/8/24 16:35 DC Losartan Potassium (CozAAR 100MG TAB) 100 mg DAILY PO 06/03/24 09:00 07/03/24 08:59 06/04/24 09:58 100 MG Magnesium Sulfate 50 ml @ 0 mls/hr PROTOCOL IV 06/01/24 15:00 06/02/24 09:11 DC 06/01/24 16:25 25 MLS/HR Magnesium Sulfate 50 ml @ 0 mls/hr PROTOCOL PRN IV MAGNESIUM PROTOCOL 06/01/24 17:00 07/01/24 16:59 Ondansetron HCl (zoFRAN 4MG INJ) 4 mg Q6H PRN IVP NAUSEA/VOMITING 06/01/24 16:30 07/01/24 16:29 Potassium Chloride 100 ml @ 100 mls/hr AD PRN IV POTASSIUM PROTOCOL 06/01/24 17:00 07/01/24 16:59 Potassium Chloride 100 ml @ 100 mls/hr AD PRN IV POTASSIUM PROTOCOL 06/01/24 17:00 06/02/24 09:11 DC Potassium Chloride (K-Dur 10meq Sr Tab) 10 meq AD PRN PO POTASSIUM PROTOCOL 06/02/24 09:30 07/01/24 16:59 06/04/24 05:37 10 MEQ Potassium Chloride (K-Dur/Klor-Con 20meq) 10 meq AD PRN PO POTASSIUM PROTOCOL 06/01/24 17:00 06/02/24 09:11 DC Potassium Chloride (KCl 10% Elixir 20meq/15ml) 10 meq AD PRN PO POTASSIUM PROTOCOL 06/01/24 17:00 07/01/24 16:59 Potassium Chloride (KCl 10% Elixir 20meq/15ml) 10 meq AD PRN PO POTASSIUM PROTOCOL 06/01/24 17:00 06/02/24 09:11 DC Prednisone (deltaSONE/ oraSONE 20MG TAB) 40 mg DAILY PO 06/02/24 16:00 07/02/24 15:59 06/04/24 09:59 40 MG Sodium Chloride 1,000 ml @ 75 mls/hr [id number] IV 06/02/24 00:00 06/03/24 23:00 DC 06/03/24 05:13 75 MLS/HR DIAGNOSTICS / RADIOLOGY: [ ] ASSESSMENT: Acute respiratory distress, POA Chronic obstructive pulmonary disease exacerbation, POA Acute on chronic kidney failure, stage IV Hypomagnesemia, POA Hypertension PLAN: Patient will continue with oxygen supplementation to keep O2 sat greater than 92% Pulmonology consulted, appreciate recommendations Continue DuoNebs, budesonide Continue prednisone 40 mg daily for seven days Covid, influenza and RSV ordered will follow up Continue with levofloxacin Patient will be on oxygen supplementation to keep O2 sat at 92% GI and DVT prophylaxis Repeat labs tomorrow Patient will have heart healthy diet Disposition: Pending pulmonology clearance, improvement in respiratory status FRANCY RIOS MD Jun 04, 2024 13:24
[2024-06-04 14:10] LABS: CHLAM.PNEUMONIAE IGM TITER <1:10 (Neg:<1:10)
--- NOTE | 2024-06-04 14:48 | PN ---
[facility] PROGRESS NOTE Date Patient Seen: Jun 04, 2024 Time of Visit: 14:44 Supervising Physician: JADEN GHOSH Primary Care Physician: [Dr. Nohemy Alicia ] Outpatient Specialists: [ ] Inpatient Consults: [[facility] team-pulmo consult ] PROBLEM LIST: Acute COPD exacerbation . Community-acquired pneumonia in the setting of immunocompromise state-POA ELI on CKD stage III Right pleural effusion on CXR-POA,resolved History of right lung cancer, currently not on chemotherapy or immunomodulator due to intolerance of treatment Ppm in Situ Primary hypertension Former smoker INTERVAL HISTORY: She was seen and examined today by me at bedside, the patient had developed interval worsening in last 24 hours. Now sob , cough, congestion and rhinorrhea . She has + wheezing that is audible. Denies any chest pain or shortness of breath. Sats at 95 % . + Dyspnea on exertion REVIEW OF SYSTEMS: 12 point ROS reviewed with patient. Pertinent positives mentioned above. Otherwise negative. PHYSICAL EXAM: GENERAL: alert, awake oriented x 3, not in acute distress HEENT: EOMI, Sclera non icteric, moist mucosa NECK: Supple, no JVD, trachea midline LUNGS: tight air entry, prominent scattered expiratory wheezing noted on exam . HEART: Regular rate and rhythm. Normal S1 and S2, without murmurs ABD: Abdomen soft, nontender. Bowel sounds present EXT: No clubbing cyanosis or edema NEURO: Alert and oriented to person, follows commands Vital Signs (last 8hr) Date Time Temp Pulse Resp B/P (MAP) Pulse Ox O2 Delivery O2 Flow Rate FiO2 06/04/24 12:00 97.7 82 18 165/81 96 Room Air 06/04/24 11:39 81 18 N/A Room Air 06/04/24 11:36 81 18 06/04/24 09:58 143/69 06/04/24 08:00 97.9 81 19 143/69 95 Room Air 06/04/24 07:07 85 18 N/A Room Air 06/04/24 07:03 85 18 LABS: Hematology Labs: Test 06/04/24 04:25 Range/Units White Blood Count 9.3 4.8-10.8 K/uL Red Blood Count 3.20 L 4.00-5.50 MIL/uL Hemoglobin 9.7 L 12.0-16.0 g/dL Hematocrit 28.0 L 36-48 % Mean Corpuscular Volume 87.5 79-99 fL Mean Corpuscular Hemoglobin 30.3 27.0-33.0 pg Mean Corpuscular Hemoglobin Concent 34.6 32.0-36.0 g/dL Red Cell Distribution Width 14.6 11.0-15.5 % Platelet Count 243 130-400 K/uL Mean Platelet Volume 9.9 7.5-10.5 fL Nucleated Red Blood Cells 0.0 0.0-0.19 % Chemistry Labs: Test 06/04/24 04:25 Range/Units Sodium Level 145 136-145 mmol/L Potassium Level 3.6 3.5-5.1 mmol/L Chloride Level 111 101-111 mmol/L Carbon Dioxide Level 22 21-32 mmol/L Blood Urea Nitrogen 26 H 7-18 mg/dL Creatinine 1.7 H 0.5-1.0 mg/dL Glomerular Filtration Rate Calc 31 >90 mL/min Random Glucose 126 H 70-105 mg/dL Total Calcium 8.8 8.5-10.1 mg/dL DIAGNOSTICS / RADIOLOGY RESULTS: [ ] PLAN NEURO: Minimize central acting medications as possible. Maintain fall precautions, adequate lighting during the day PULMONARY: Supplemental 02 as needed. Maintain aspiration precautions at all times STAT ABG and CXR now Increase solumedrol to 40 mg IV q8h x 24 hours then 40q12 Adjust antibiotics . Continue on Mucomyst, pulmicort and atrovent. CARDIOVASCULAR: Follow hemodynamics. Vital signs per facility protocol GI & NUTRITION: Continue with nutritional support. Continue stool softeners and laxatives as needed. KIDNEYS & ELECTROLYTES: Strict monitoring of intake, output and overall fluid balance. Avoid nephrotoxic medications to the extent possible. Medications to be dosed according to renal function. Monitor electrolytes and replace as needed ENDOCRINE: Maintain blood glucose between 100-180 at all times. Hypoglycemia protocol in place INFECTIOUS DISEASE: Trend temperature, WBC and procalcitonin level Follow cultures, deescalate antibiotics as soon as possible. Panculture if new onset fever ONCOLOGY/HEMATOLOGY/COAGULATION: Monitor for s/s of bleeding Monitor hemoglobin, coagulation studies as needed SKIN: Pressure ulcer prevention per facility protocol Specialty mattress ORTHO/REHAB: Continue PT/OT Prophylaxis: Continue GI and DVT prophylaxis Code Status: Full Resuscitation Disposition: PER PRIMARY TEAM Other: Total patient care time: 35 minutes Case discussed with supervising physician plan of care agreed upon GALO TAVERAS Jun 04, 2024 14:48
[2024-06-04 15:02] LABS: ABG BASE EXCESS -4.8 mmol/L (-2.0-3.0); ABG HCO3 18.9 mmol/L (21.0-28.0); ABG OXYGEN SATURATION 94.8 % (94.0-98.0); ABG PCO2 32 mmHg (32-45); ABG PH 7.395 (7.350-7.450); DEVICE COMMENT RR RA; PO2, ARTERIAL BG 72.6 mmHg (83.0-108.0)
--- NOTE | 2024-06-04 15:36 | HMCIMG ---
CHEST 1VW REASON: congestion COMPARISON: 06/01/2024 FINDINGS: Heart now appears mildly enlarged. There is a small right pleural effusion unchanged. There is no vascular congestion. Lungs are clear. Pacemaker and a chest port are again noted. IMPRESSION: 1. Small right pleural effusion unchanged.
[2024-06-04 18:19] LABS: COVID19 (SARS ANTIGEN RAPID) PRESUMPTIVE NEGATIVE (NEGATIVE); INFLUENZA TYPE A Negative For Type A (NEGATIVE); INFLUENZA TYPE B Negative For Type B (NEGATIVE)
[2024-06-04] MEDS: OSELTAMIVIR PHOSPHATE 75 MG CAP PO SCH (21:00)
[2024-06-04] MEDS: Solu-medROL 40MG VIAL IVP SCH (22:12)
[2024-06-05] VITALS (13 sets, daily range): BP systolic 133–151; BP diastolic 61–79; PULSE 70–87; RESP 18–19; TEMP 97.6–98.2; O2SAT 94–96
[2024-06-05 04:14] LABS: BASOPHILS # (AUTO) 0.02 K/uL (0.00-0.20); BASOPHILS % (AUTO) 0.2 % (0.0-5.0); HEMATOCRIT 30.1 % (36-48); IMMATURE GRANULOCYTE ABSOLUTE 0.19 K/uL (0-1); LYMPHOCYTES # (AUTO) 0.8 K/uL (1.0-4.8); LYMPHOCYTES % (AUTO) 9.4 % (21.0-51.0); MEAN CORPUSCULAR HEMOGLOBIN 29.2 pg (27.0-33.0); MEAN CORPUSCULAR HGB CONC 33.9 g/dL (32.0-36.0); MEAN CORPUSCULAR VOLUME 86.2 fL (79-99); MONOCYTES # (AUTO) 0.1 K/uL (0.1-1.0); MONOCYTES % (AUTO) 1.6 % (3.0-13.0); NEUTROPHILS % (AUTO) 86.4 % (40.0-77.0); PLATELET COUNT (AUTO) 275 K/uL (130-400); RED BLOOD CELL COUNT(AUTO) 3.49 MIL/uL (4.00-5.50); RED CELL DISTRIBUTION WIDTH 14.7 % (11.0-15.5); WHITE BLOOD COUNT (AUTO) 8.1 K/uL (4.8-10.8)
[2024-06-05 04:23] LABS: CREATININE 1.8 mg/dL (0.5-1.0); MAGNESIUM 1.6 mg/dL (1.80-2.40); PHOSPHORUS 3.9 mg/dL (2.5-4.9); POTASSIUM 3.8 mmol/L (3.5-5.1)
[2024-06-05] MEDS: MAGNESIUM 2GM PREMIX 50ML 50 ML IV PRN (06:33)
--- NOTE | 2024-06-05 10:52 | PN ---
[facility] PROGRESS NOTE Date Patient Seen: Jun 05, 2024 Time of Visit: 10:50 Supervising Physician: CELE FOWLER MD Primary Care Physician: [Dr. Nohemy Alicia ] Outpatient Specialists: [ ] Inpatient Consults: [[facility] team-pulmo consult ] PROBLEM LIST: Acute COPD exacerbation . Community-acquired pneumonia in the setting of immunocompromise state-POA ELI on CKD stage III Right pleural effusion on CXR-POA History of right lung cancer, currently not on chemotherapy or immunomodulator due to intolerance of treatment Ppm in Situ Primary hypertension Former smoker INTERVAL HISTORY: She was seen and examined today by me at bedside, ABG reveal no interval worsening since her development of wheezing, on Solumerol IV and has had some improvement, better air entry and wheezing reduced howeer still present to right lung Denies any chest pain Started on Tamiflu Empirically as per Dr. Chow. REVIEW OF SYSTEMS: 12 point ROS reviewed with patient. Pertinent positives mentioned above. Otherwise negative. PHYSICAL EXAM: GENERAL: alert, awake oriented x 3, not in acute distress HEENT: EOMI, Sclera non icteric, moist mucosa NECK: Supple, no JVD, trachea midline LUNGS: tight air entry, HEART: Regular rate and rhythm. Normal S1 and S2, without murmurs ABD: Abdomen soft, nontender. Bowel sounds present EXT: No clubbing cyanosis or edema NEURO: Alert and oriented to person, follows commands Vital Signs (last 8hr) Date Time Temp Pulse Resp B/P (MAP) Pulse Ox O2 Delivery O2 Flow Rate FiO2 06/05/24 08:40 151/72 06/05/24 08:00 97.9 73 18 151/72 94 Room Air 06/05/24 07:06 87 18 N/A Room Air 21 06/05/24 07:02 87 18 06/05/24 03:00 98.2 82 19 145/79 95 Room Air LABS: Hematology Labs: Test 06/05/24 03:59 Range/Units White Blood Count 8.1 4.8-10.8 K/uL Red Blood Count 3.49 L 4.00-5.50 MIL/uL Hemoglobin 10.2 L 12.0-16.0 g/dL Hematocrit 30.1 L 36-48 % Mean Corpuscular Volume 86.2 79-99 fL Mean Corpuscular Hemoglobin 29.2 27.0-33.0 pg Mean Corpuscular Hemoglobin Concent 33.9 32.0-36.0 g/dL Red Cell Distribution Width 14.7 11.0-15.5 % Platelet Count 275 130-400 K/uL Mean Platelet Volume 10.0 7.5-10.5 fL Immature Granulocyte % (Auto) 2.4 H 0-1 % Neutrophils (%) (Auto) 86.4 H 40.0-77.0 % Lymphocytes (%) (Auto) 9.4 L 21.0-51.0 % Monocytes (%) (Auto) 1.6 L 3.0-13.0 % Eosinophils (%) (Auto) 0.0 0.0-8.0 % Basophils (%) (Auto) 0.2 0.0-5.0 % Neutrophils # (Auto) 7.0 1.8-7.7 K/uL Lymphocytes # (Auto) 0.8 L 1.0-4.8 K/uL Monocytes # (Auto) 0.1 0.1-1.0 K/uL Eosinophils # (Auto) 0.00 0.00-0.70 K/uL Basophils # (Auto) 0.02 0.00-0.20 K/uL Absolute Immature Granulocyte (auto 0.19 0-1 K/uL Nucleated Red Blood Cells 0.0 0.0-0.19 % Chemistry Labs: Test 06/05/24 03:59 Range/Units Sodium Level 143 136-145 mmol/L Potassium Level 3.8 3.5-5.1 mmol/L Chloride Level 109 101-111 mmol/L Carbon Dioxide Level 22 21-32 mmol/L Blood Urea Nitrogen 28 H 7-18 mg/dL Creatinine 1.8 H 0.5-1.0 mg/dL Glomerular Filtration Rate Calc 29 >90 mL/min Random Glucose 137 H 70-105 mg/dL Total Calcium 8.9 8.5-10.1 mg/dL Phosphorus Level 3.9 2.5-4.9 mg/dL Magnesium Level 1.60 L 1.80-2.40 mg/dL DIAGNOSTICS / RADIOLOGY RESULTS: [ ] PLAN NEURO: Minimize central acting medications as possible. Maintain fall precautions, adequate lighting during the day PULMONARY: Supplemental 02 as needed. Maintain aspiration precautions at all times ABg reviewed Continue solumedrol to 40 mg IV q12h then dc on medrol dose pack and antiboitic . Adjust antibiotics . Continue on Mucomyst, pulmicort and atrovent. CARDIOVASCULAR: Follow hemodynamics. Vital signs per facility protocol GI & NUTRITION: Continue with nutritional support. Continue stool softeners and laxatives as needed. KIDNEYS & ELECTROLYTES: Strict monitoring of intake, output and overall fluid balance. Avoid nephrotoxic medications to the extent possible. Medications to be dosed according to renal function. Monitor electrolytes and replace as needed ENDOCRINE: Maintain blood glucose between 100-180 at all times. Hypoglycemia protocol in place INFECTIOUS DISEASE: Trend temperature, WBC and procalcitonin level Follow cultures, deescalate antibiotics as soon as possible. Panculture if new onset fever ONCOLOGY/HEMATOLOGY/COAGULATION: Monitor for s/s of bleeding Monitor hemoglobin, coagulation studies as needed SKIN: Pressure ulcer prevention per facility protocol Specialty mattress ORTHO/REHAB: Continue PT/OT Prophylaxis: Continue GI and DVT prophylaxis Code Status: Full Resuscitation Disposition: PER PRIMARY TEAM Other: Total patient care time: 35 minutes Case discussed with supervising physician plan of care agreed upon GALO TAVERAS Jun 05, 2024 10:52
--- NOTE | 2024-06-05 11:22 | PN ---
[facility] PROGRESS NOTE Date of Service: Jun 05, 2024 Time of Service: 11:19 SUBJECTIVE: 06/02 patient seen at bedside, no acute events overnight. She reports improvement in breathing however she still has a prominent wheeze. Patient on nebulizer treatments, we will start prednisone 40 mg Q 24 hours for seven days. We will start daily peak flows to assess improvement in respiratory status. Follow up with Pulmonary for further recommendations. Creatinine improved from 2.0 down to 1.9, remainder of her labs are relatively unremarkable. 06/03 patient seen at bedside, no acute events overnight. Her wheezing has resolved, pulmonology evaluated her and wants her to stay for treatment for one more day. Her vitals are relatively unremarkable. She was given a lab holiday today, repeat labs tomorrow 06/04 patient seen at bedside, no acute events overnight. Today her wheezing is more prominent and she now has upper respiratory symptoms with congestion, cough and runny nose. We will repeat influenza, COVID and order RSV, pulmonology finding to increase her oral prednisone to IV high dose, we will continue with DuoNebs. Her peak flows were mildly decreased from yesterday. Creatinine improved from 1.9 down to 1.7, remainder of her labs are relatively unremarkable. 06/05 patient seen at bedside, no acute events overnight. Patient denies any shortness of breath, mild wheezing today. She has been started on high dose IV steroids, influenza and COVID are negative RSV is still pending. Peak flows improved somewhat today from 180 yesterday to 200 today. We will continue current treatments and follow up with pulmonology for further recommendations. REVIEW OF SYSTEMS 12 point review of systems negative unless noted in HPI PHYSICAL EXAM GENERAL APPEARANCE: The patient is awake, alert, and oriented, in no acute cardiopulmonary distress. NEUROLOGICAL: Cranial nerves II-XII grossly intact. Motor is 5/5 in bilateral upper and lower extremities proximal to distal. No sensory deficits. HEENT: Face is symmetric. Pupils are equal and reactive. Extraocular movements are intact. NECK: Supple. No JVD. No thyromegaly. No submental, submandibular, pre- /postauricular, occipital or supraclavicular lymphadenopathy. CHEST: Normal chest expansion. No Telemetry. LUNGS: Absence of any rales, rhonchi or any wheezing. CARDIOVASCULAR: Regular. S1 and S2 normal. No appreciable rubs, murmurs or gallops. ABDOMEN: Soft, nontender, and nondistended. There is no rebound, voluntary guarding, or rigidity. : Deferred. No Rosas. EXTREMITIES: Non-edematous and not cyanotic. No clubbing. Good capillary refill. SKIN: No skin breakdown. Vital Signs (last 8hr) Date Time Temp Pulse Resp B/P (MAP) Pulse Ox O2 Delivery O2 Flow Rate FiO2 06/05/24 08:40 151/72 06/05/24 08:00 97.9 73 18 151/72 94 Room Air 06/05/24 07:06 87 18 N/A Room Air 21 06/05/24 07:02 87 18 LABS: Laboratory: Test 06/05/24 03:59 06/04/24 17:50 06/04/24 15:01 Range/Units White Blood Count 8.1 4.8-10.8 K/uL Red Blood Count 3.49 L 4.00-5.50 MIL/uL Hemoglobin 10.2 L 12.0-16.0 g/dL Hematocrit 30.1 L 36-48 % Mean Corpuscular Volume 86.2 79-99 fL Mean Corpuscular Hemoglobin 29.2 27.0-33.0 pg Mean Corpuscular Hemoglobin Concent 33.9 32.0-36.0 g/dL Red Cell Distribution Width 14.7 11.0-15.5 % Platelet Count 275 130-400 K/uL Mean Platelet Volume 10.0 7.5-10.5 fL Immature Granulocyte % (Auto) 2.4 H 0-1 % Neutrophils (%) (Auto) 86.4 H 40.0-77.0 % Lymphocytes (%) (Auto) 9.4 L 21.0-51.0 % Monocytes (%) (Auto) 1.6 L 3.0-13.0 % Eosinophils (%) (Auto) 0.0 0.0-8.0 % Basophils (%) (Auto) 0.2 0.0-5.0 % Neutrophils # (Auto) 7.0 1.8-7.7 K/uL Lymphocytes # (Auto) 0.8 L 1.0-4.8 K/uL Monocytes # (Auto) 0.1 0.1-1.0 K/uL Eosinophils # (Auto) 0.00 0.00-0.70 K/uL Basophils # (Auto) 0.02 0.00-0.20 K/uL Absolute Immature Granulocyte (auto 0.19 0-1 K/uL Nucleated Red Blood Cells 0.0 0.0-0.19 % Sodium Level 143 136-145 mmol/L Potassium Level 3.8 3.5-5.1 mmol/L Chloride Level 109 101-111 mmol/L Carbon Dioxide Level 22 21-32 mmol/L Blood Urea Nitrogen 28 H 7-18 mg/dL Creatinine 1.8 H 0.5-1.0 mg/dL Glomerular Filtration Rate Calc 29 >90 mL/min Random Glucose 137 H 70-105 mg/dL Total Calcium 8.9 8.5-10.1 mg/dL Phosphorus Level 3.9 2.5-4.9 mg/dL Magnesium Level 1.60 L 1.80-2.40 mg/dL Influenza Type A Antigen Negative For Type A NEGATIVE Influenza Type B Antigen Negative For Type B NEGATIVE SARS-CoV-2 Antigen (Rapid) PRESUMPTIVE NEGATIVE NEGATIVE Blood Gas Specimen Type Arterial Arterial Blood pH 7.395 7.350-7.450 Arterial Blood Partial Pressure CO2 32 32-45 mmHg Arterial Blood Partial Pressure O2 72.6 L 83.0-108.0 mmHg Arterial Blood HCO3 18.9 L 21.0-28.0 mmol/L Arterial Blood Oxygen Saturation 94.8 94.0-98.0 % Arterial Blood Base Excess -4.8 L -2.0-3.0 mmol/L Blood Gas Temperature 37.0 35.5-37.0 CELSIUS FiO2 21.0 % Blood Gas Specimen Comment RR RA Current Medications Medications (Trade) Dose Ordered Sig/Baldev Route PRN Reason Start Time Stop Time Status Last Admin Dose Admin Acetaminophen (TYLenol 325MG TAB) 650 mg Q4H PRN PO TEMPERATURE GREATER THAN 101.5 06/01/24 16:30 07/01/24 16:29 Acetaminophen (TYLenol 325MG TAB) 650 mg Q6H PRN PO MILD PAIN (1-3) 06/01/24 16:30 07/01/24 16:29 Acetylcysteine (MUComyst 20% 4ML) 400mg = 2ml [id number] IH 06/02/24 18:00 07/02/24 17:59 06/05/24 07:02 800 MG Albuterol (DUOneb) 1 udvial [id number] PRN IH sob/wheeze 06/01/24 23:30 07/01/24 23:29 Amlodipine Besylate (NorvASC 5MG TAB) 5 mg HS PO 06/02/24 21:00 07/02/24 20:59 06/04/24 22:10 5 MG Atorvastatin Calcium (LIPItor 10MG) 10 mg HS PO 06/02/24 21:00 07/02/24 20:59 06/04/24 22:10 10 MG Benzonatate (Tessalon 100mg Caps) 100 mg Q8H PRN PO COUGH 06/01/24 23:30 07/01/24 23:29 06/04/24 05:36 100 MG Budesonide (Pulmicort 0.25mg/2ml) 0.25 mg BIDRESP IH 06/02/24 06:00 07/02/24 05:59 06/05/24 07:01 0.25 MG Carvedilol (Coreg 12.5MG) 12.5 mg BID PO 06/02/24 21:00 07/02/24 20:59 06/05/24 08:40 12.5 MG Enoxaparin Sodium (Lovenox) 30 mg DAILY SQ 06/02/24 09:00 07/02/24 08:59 06/05/24 08:40 30 MG Famotidine (Pepcid 20mg Vial) 20 mg DAILY IV 06/01/24 21:00 07/01/24 20:59 06/05/24 08:40 20 MG Ipratropium [place] (AtrovENT UD) 0.5 MG [id number] IH 06/01/24 18:00 07/01/24 17:59 06/05/24 07:02 0.5 MG Levofloxacin/ Dextrose 50 ml @ 100 mls/hr Q48H IVPB 06/03/24 17:00 06/13/24 16:59 06/03/24 16:34 100 MLS/HR Levofloxacin/ Dextrose 100 ml @ 100 mls/hr Q24H IV 06/01/24 16:30 06/01/24 16:35 DC Losartan Potassium (CozAAR 100MG TAB) 100 mg DAILY PO 06/03/24 09:00 07/03/24 08:59 06/05/24 08:40 100 MG Magnesium Sulfate 50 ml @ 0 mls/hr PROTOCOL IV 06/01/24 15:00 06/02/24 09:11 DC 06/01/24 16:25 25 MLS/HR Magnesium Sulfate 50 ml @ 0 mls/hr PROTOCOL PRN IV MAGNESIUM PROTOCOL 06/01/24 17:00 07/01/24 16:59 06/05/24 06:33 25 MLS/HR Methylprednisolone Sodium Succinate (Solu-medROL 40MG) 40 mg BID IVP 06/04/24 21:00 07/04/24 20:59 06/05/24 08:40 40 MG Ondansetron HCl (zoFRAN 4MG INJ) 4 mg Q6H PRN IVP NAUSEA/VOMITING 06/01/24 16:30 07/01/24 16:29 Oseltamivir Phosphate (Tamiflu) 75 mg Q24H PO 06/04/24 21:00 06/09/24 20:59 Potassium Chloride 100 ml @ 100 mls/hr AD PRN IV POTASSIUM PROTOCOL 06/01/24 17:00 07/01/24 16:59 Potassium Chloride 100 ml @ 100 mls/hr AD PRN IV POTASSIUM PROTOCOL 06/01/24 17:00 06/02/24 09:11 DC Potassium Chloride (K-Dur 10meq Sr Tab) 10 meq AD PRN PO POTASSIUM PROTOCOL 06/02/24 09:30 07/01/24 16:59 06/04/24 05:37 10 MEQ Potassium Chloride (K-Dur/Klor-Con 20meq) 10 meq AD PRN PO POTASSIUM PROTOCOL 06/01/24 17:00 06/02/24 09:11 DC Potassium Chloride (KCl 10% Elixir 20meq/15ml) 10 meq AD PRN PO POTASSIUM PROTOCOL 06/01/24 17:00 07/01/24 16:59 Potassium Chloride (KCl 10% Elixir 20meq/15ml) 10 meq AD PRN PO POTASSIUM PROTOCOL 06/01/24 17:00 06/02/24 09:11 DC Prednisone (deltaSONE/ oraSONE 20MG TAB) 40 mg DAILY PO 06/02/24 16:00 06/05/24 08:39 DC 06/04/24 09:59 40 MG Sodium Chloride 1,000 ml @ 75 mls/hr [id number] IV 06/02/24 00:00 06/03/24 23:00 DC 06/03/24 05:13 75 MLS/HR DIAGNOSTICS / RADIOLOGY: [ ] ASSESSMENT: Acute respiratory distress, POA Chronic obstructive pulmonary disease exacerbation, POA Acute on chronic kidney failure, stage IV Hypomagnesemia, POA Hypertension PLAN: Patient will continue with oxygen supplementation to keep O2 sat greater than 92% Pulmonology consulted, appreciate recommendations Continue DuoNebs, budesonide Continue methylprednison 40mg IV BID Continue amlodipine 5mg q24h Covid, influenza and RSV ordered will follow up Continue with levofloxacin and tamiflu per pulmonology Patient will be on oxygen supplementation to keep O2 sat at 92% GI and DVT prophylaxis Repeat labs tomorrow Patient will have heart healthy diet Disposition: Pending pulmonology clearance, improvement in respiratory status FRANCY RIOS MD Jun 05, 2024 11:22
[2024-06-05] MEDS: ceTIRIzine HCL 5 MG TABLET PO SCH (21:00)
[2024-06-06] VITALS (15 sets, daily range): BP systolic 142–162; BP diastolic 70–91; PULSE 65–107; RESP 18–22; TEMP 97.2–98.4; O2SAT 92–97
[2024-06-06 03:49] LABS: BASOPHILS # (AUTO) 0.03 K/uL (0.00-0.20); BASOPHILS % (AUTO) 0.3 % (0.0-5.0); HEMATOCRIT 29.5 % (36-48); IMMATURE GRANULOCYTE ABSOLUTE 0.24 K/uL (0-1); LYMPHOCYTES % (AUTO) 8.7 % (21.0-51.0); MEAN CORPUSCULAR HEMOGLOBIN 29.4 pg (27.0-33.0); MEAN CORPUSCULAR HGB CONC 34.6 g/dL (32.0-36.0); MONOCYTES # (AUTO) 0.4 K/uL (0.1-1.0); NEUTROPHILS # (AUTO) 9.9 K/uL (1.8-7.7); NEUTROPHILS % (AUTO) 85.9 % (40.0-77.0); PLATELET COUNT (AUTO) 264 K/uL (130-400); RED BLOOD CELL COUNT(AUTO) 3.47 MIL/uL (4.00-5.50); RED CELL DISTRIBUTION WIDTH 14.7 % (11.0-15.5); WHITE BLOOD COUNT (AUTO) 11.5 K/uL (4.8-10.8)
[2024-06-06 03:56] LABS: CREATININE 1.7 mg/dL (0.5-1.0); POTASSIUM 3.6 mmol/L (3.5-5.1)
[2024-06-06] MEDS: fluTICasone proPIONate 50MCG/SPRAY 16 GM BOTTLE EN SCH (09:05)
--- NOTE | 2024-06-06 16:33 | PN ---
[facility] PROGRESS NOTE Date of Service: Jun 06, 2024 Time of Service: 16:30 SUBJECTIVE: 06/02 patient seen at bedside, no acute events overnight. She reports improvement in breathing however she still has a prominent wheeze. Patient on nebulizer treatments, we will start prednisone 40 mg Q 24 hours for seven days. We will start daily peak flows to assess improvement in respiratory status. Follow up with Pulmonary for further recommendations. Creatinine improved from 2.0 down to 1.9, remainder of her labs are relatively unremarkable. 06/03 patient seen at bedside, no acute events overnight. Her wheezing has resolved, pulmonology evaluated her and wants her to stay for treatment for one more day. Her vitals are relatively unremarkable. She was given a lab holiday today, repeat labs tomorrow 06/04 patient seen at bedside, no acute events overnight. Today her wheezing is more prominent and she now has upper respiratory symptoms with congestion, cough and runny nose. We will repeat influenza, COVID and order RSV, pulmonology finding to increase her oral prednisone to IV high dose, we will continue with DuoNebs. Her peak flows were mildly decreased from yesterday. Creatinine improved from 1.9 down to 1.7, remainder of her labs are relatively unremarkable. 06/05 patient seen at bedside, no acute events overnight. Patient denies any shortness of breath, mild wheezing today. She has been started on high dose IV steroids, influenza and COVID are negative RSV is still pending. Peak flows improved somewhat today from 180 yesterday to 200 today. We will continue current treatments and follow up with pulmonology for further recommendations. 06/06 patient seen at bedside, no acute events overnight. She continues with prominent wheeze and cough. She continues on IV steroids and nebulizer therapy. We will continue current treatments and follow up with pulmonology for further recommendations. REVIEW OF SYSTEMS 12 point review of systems negative unless noted in HPI PHYSICAL EXAM GENERAL APPEARANCE: The patient is awake, alert, and oriented, in no acute cardiopulmonary distress. NEUROLOGICAL: Cranial nerves II-XII grossly intact. Motor is 5/5 in bilateral upper and lower extremities proximal to distal. No sensory deficits. HEENT: Face is symmetric. Pupils are equal and reactive. Extraocular movements are intact. NECK: Supple. No JVD. No thyromegaly. No submental, submandibular, pre- /postauricular, occipital or supraclavicular lymphadenopathy. CHEST: Normal chest expansion. No Telemetry. LUNGS: Absence of any rales, rhonchi or any wheezing. CARDIOVASCULAR: Regular. S1 and S2 normal. No appreciable rubs, murmurs or gallops. ABDOMEN: Soft, nontender, and nondistended. There is no rebound, voluntary guarding, or rigidity. : Deferred. No Rosas. EXTREMITIES: Non-edematous and not cyanotic. No clubbing. Good capillary refill. SKIN: No skin breakdown. Vital Signs (last 8hr) Date Time Temp Pulse Resp B/P (MAP) Pulse Ox O2 Delivery O2 Flow Rate FiO2 06/06/24 12:00 97.9 69 18 155/73 98 Room Air 06/06/24 11:01 79 18 06/06/24 11:00 18 N/A Room Air 21 06/06/24 09:03 142/70 LABS: Laboratory: Test 06/06/24 03:44 06/05/24 03:59 06/04/24 17:50 Range/Units White Blood Count 11.5 #H 4.8-10.8 K/uL Red Blood Count 3.47 L 4.00-5.50 MIL/uL Hemoglobin 10.2 L 12.0-16.0 g/dL Hematocrit 29.5 L 36-48 % Mean Corpuscular Volume 85.0 79-99 fL Mean Corpuscular Hemoglobin 29.4 27.0-33.0 pg Mean Corpuscular Hemoglobin Concent 34.6 32.0-36.0 g/dL Red Cell Distribution Width 14.7 11.0-15.5 % Platelet Count 264 130-400 K/uL Mean Platelet Volume 9.7 7.5-10.5 fL Immature Granulocyte % (Auto) 2.1 H 0-1 % Neutrophils (%) (Auto) 85.9 H 40.0-77.0 % Lymphocytes (%) (Auto) 8.7 L 21.0-51.0 % Monocytes (%) (Auto) 3.0 3.0-13.0 % Eosinophils (%) (Auto) 0.0 0.0-8.0 % Basophils (%) (Auto) 0.3 0.0-5.0 % Neutrophils # (Auto) 9.9 H 1.8-7.7 K/uL Lymphocytes # (Auto) 1.0 1.0-4.8 K/uL Monocytes # (Auto) 0.4 0.1-1.0 K/uL Eosinophils # (Auto) 0.00 0.00-0.70 K/uL Basophils # (Auto) 0.03 0.00-0.20 K/uL Absolute Immature Granulocyte (auto 0.24 0-1 K/uL Nucleated Red Blood Cells 0.0 0.0-0.19 % Sodium Level 143 136-145 mmol/L Potassium Level 3.6 3.5-5.1 mmol/L Chloride Level 108 101-111 mmol/L Carbon Dioxide Level 24 21-32 mmol/L Blood Urea Nitrogen 36 H 7-18 mg/dL Creatinine 1.7 H 0.5-1.0 mg/dL Glomerular Filtration Rate Calc 31 >90 mL/min Random Glucose 146 H 70-105 mg/dL Total Calcium 8.7 8.5-10.1 mg/dL Phosphorus Level 3.9 2.5-4.9 mg/dL Magnesium Level 1.60 L 1.80-2.40 mg/dL Influenza Type A Antigen Negative For Type A NEGATIVE Influenza Type B Antigen Negative For Type B NEGATIVE SARS-CoV-2 Antigen (Rapid) PRESUMPTIVE NEGATIVE NEGATIVE Current Medications Medications (Trade) Dose Ordered Sig/Baldev Route PRN Reason Start Time Stop Time Status Last Admin Dose Admin Acetaminophen (TYLenol 325MG TAB) 650 mg Q4H PRN PO TEMPERATURE GREATER THAN 101.5 06/01/24 16:30 07/01/24 16:29 Acetaminophen (TYLenol 325MG TAB) 650 mg Q6H PRN PO MILD PAIN (1-3) 06/01/24 16:30 07/01/24 16:29 Acetylcysteine (MUComyst 20% 4ML) 400mg = 2ml [id number] IH 06/02/24 18:00 07/02/24 17:59 06/06/24 10:58 800 MG Albuterol (DUOneb) 1 udvial Q2QOQAG PRN IH sob/wheeze 06/01/24 23:30 07/01/24 23:29 Amlodipine Besylate (NorvASC 5MG TAB) 5 mg HS PO 06/02/24 21:00 07/02/24 20:59 06/05/24 21:29 5 MG Atorvastatin Calcium (LIPItor 10MG) 10 mg HS PO 06/02/24 21:00 07/02/24 20:59 06/05/24 21:29 10 MG Benzonatate (Tessalon 100mg Caps) 100 mg Q8H PRN PO COUGH 06/01/24 23:30 07/01/24 23:29 06/04/24 05:36 100 MG Budesonide (Pulmicort 0.25mg/2ml) 0.25 mg BIDRESP IH 06/02/24 06:00 07/02/24 05:59 06/06/24 07:12 0.25 MG Carvedilol (Coreg 12.5MG) 12.5 mg BID PO 06/02/24 21:00 07/02/24 20:59 06/06/24 09:03 12.5 MG Cetirizine HCl (ZYRtec 5 MG TABLET) 10 mg HS PO 06/05/24 21:00 07/05/24 20:59 Enoxaparin Sodium (Lovenox) 30 mg DAILY SQ 06/02/24 09:00 07/02/24 08:59 06/06/24 09:04 30 MG Famotidine (Pepcid 20mg Vial) 20 mg DAILY IV 06/01/24 21:00 07/01/24 20:59 06/06/24 09:03 20 MG Fluticasone Propionate (FLOnase 50 mcg/ spray 16g bottle) 1 SPRAY ONCE EN 06/06/24 09:00 06/06/24 09:01 DC 06/06/24 09:05 1 SPRAYS Ipratropium [place] (AtrovENT UD) 0.5 MG [id number] IH 06/01/24 18:00 07/01/24 17:59 06/06/24 11:00 0.5 MG Levofloxacin/ Dextrose 50 ml @ 100 mls/hr Q48H IVPB 06/03/24 17:00 06/13/24 16:59 06/05/24 21:29 100 MLS/HR Levofloxacin/ Dextrose 100 ml @ 100 mls/hr Q24H IV 06/01/24 16:30 06/01/24 16:35 DC Losartan Potassium (CozAAR 100MG TAB) 100 mg DAILY PO 06/03/24 09:00 07/03/24 08:59 06/06/24 09:03 100 MG Magnesium Sulfate 50 ml @ 0 mls/hr PROTOCOL IV 06/01/24 15:00 06/02/24 09:11 DC 06/01/24 16:25 25 MLS/HR Magnesium Sulfate 50 ml @ 0 mls/hr PROTOCOL PRN IV MAGNESIUM PROTOCOL 06/01/24 17:00 07/01/24 16:59 06/05/24 06:33 25 MLS/HR Methylprednisolone Sodium Succinate (Solu-medROL 40MG) 40 mg BID IVP 06/04/24 21:00 07/04/24 20:59 06/06/24 12:39 40 MG Ondansetron HCl (zoFRAN 4MG INJ) 4 mg Q6H PRN IVP NAUSEA/VOMITING 06/01/24 16:30 07/01/24 16:29 Oseltamivir Phosphate (Tamiflu) 75 mg Q24H PO 06/04/24 21:00 06/09/24 20:59 06/05/24 21:29 75 MG Potassium Chloride 100 ml @ 100 mls/hr AD PRN IV POTASSIUM PROTOCOL 06/01/24 17:00 07/01/24 16:59 Potassium Chloride 100 ml @ 100 mls/hr AD PRN IV POTASSIUM PROTOCOL 06/01/24 17:00 06/02/24 09:11 DC Potassium Chloride (K-Dur 10meq Sr Tab) 10 meq AD PRN PO POTASSIUM PROTOCOL 06/02/24 09:30 07/01/24 16:59 06/06/24 09:12 10 MEQ Potassium Chloride (K-Dur/Klor-Con 20meq) 10 meq AD PRN PO POTASSIUM PROTOCOL 06/01/24 17:00 06/02/24 09:11 DC Potassium Chloride (KCl 10% Elixir 20meq/15ml) 10 meq AD PRN PO POTASSIUM PROTOCOL 06/01/24 17:00 07/01/24 16:59 Potassium Chloride (KCl 10% Elixir 20meq/15ml) 10 meq AD PRN PO POTASSIUM PROTOCOL 06/01/24 17:00 06/02/24 09:11 DC Prednisone (deltaSONE/ oraSONE 20MG TAB) 40 mg DAILY PO 06/02/24 16:00 06/05/24 08:39 DC 06/04/24 09:59 40 MG Sodium Chloride 1,000 ml @ 75 mls/hr [id number] IV 06/02/24 00:00 06/03/24 23:00 DC 06/03/24 05:13 75 MLS/HR DIAGNOSTICS / RADIOLOGY: [ ] ASSESSMENT: Acute respiratory distress, POA Chronic obstructive pulmonary disease exacerbation, POA Acute on chronic kidney failure, stage IV Hypomagnesemia, POA Hypertension PLAN: Patient will continue with oxygen supplementation to keep O2 sat greater than 92% Pulmonology consulted, appreciate recommendations Continue DuoNebs, budesonide Continue methylprednison 40mg IV BID Continue amlodipine 5mg q24h Covid, influenza and RSV ordered will follow up Continue with levofloxacin and tamiflu per pulmonology Patient will be on oxygen supplementation to keep O2 sat at 92% GI and DVT prophylaxis Repeat labs tomorrow Patient will have heart healthy diet Disposition: Pending pulmonology clearance, improvement in respiratory status FRANCY RIOS MD Jun 06, 2024 16:33
--- NOTE | 2024-06-06 21:49 | PN ---
[facility] PROGRESS NOTE Date Patient Seen: Jun 06, 2024 Time of Visit: 21:45 Supervising Physician: SHAZIA STANLEY MD Primary Care Physician: [Dr. Nohemy Alicia ] Outpatient Specialists: [ ] Inpatient Consults: [[facility] team-pulmo consult ] PROBLEM LIST: Acute COPD exacerbation, improved . Community-acquired pneumonia on admission Immunocompromised status Chronic kidney disease stage 3 Resolved acute kidney injury Right pleural effusion on admission, improved History of right lung cancer, currently not on chemotherapy or immunomodulator due to intolerance of treatment Permanent pacemaker in situ Primary hypertension Former tobacco use disorder INTERVAL HISTORY: 06/06/2024 Patient is doing better, afebrile, no distress Occasional cough, no congestion No fevers, no nausea Appetite improved Hemodynamically stable REVIEW OF SYSTEMS: 12 point ROS reviewed with patient. Pertinent positives mentioned above. Otherwise negative. PHYSICAL EXAM: GENERAL: alert, awake oriented x 3, not in acute distress HEENT: EOMI, Sclera non icteric, moist mucosa NECK: Supple, no JVD, trachea midline LUNGS: decreased breath sounds, but no wheezing or rhonchi HEART: Regular rate and rhythm. Normal S1 and S2, without murmurs ABD: Abdomen soft, nontender. Bowel sounds present EXT: No clubbing cyanosis or edema NEURO: Alert and oriented to person, follows commands Vital Signs (last 8hr) Date Time Temp Pulse Resp B/P (MAP) Pulse Ox O2 Delivery O2 Flow Rate FiO2 06/06/24 20:52 161/75 06/06/24 20:00 95 Room Air* 0 21 06/06/24 19:40 71 18 06/06/24 19:39 71 18 N/A Room Air 21 06/06/24 17:10 88 18 21 107 22 21 06/06/24 16:00 98.4 65 18 162/73 94 Room Air LABS: Hematology Labs: Test 06/06/24 03:44 Range/Units White Blood Count 11.5 #H 4.8-10.8 K/uL Red Blood Count 3.47 L 4.00-5.50 MIL/uL Hemoglobin 10.2 L 12.0-16.0 g/dL Hematocrit 29.5 L 36-48 % Mean Corpuscular Volume 85.0 79-99 fL Mean Corpuscular Hemoglobin 29.4 27.0-33.0 pg Mean Corpuscular Hemoglobin Concent 34.6 32.0-36.0 g/dL Red Cell Distribution Width 14.7 11.0-15.5 % Platelet Count 264 130-400 K/uL Mean Platelet Volume 9.7 7.5-10.5 fL Immature Granulocyte % (Auto) 2.1 H 0-1 % Neutrophils (%) (Auto) 85.9 H 40.0-77.0 % Lymphocytes (%) (Auto) 8.7 L 21.0-51.0 % Monocytes (%) (Auto) 3.0 3.0-13.0 % Eosinophils (%) (Auto) 0.0 0.0-8.0 % Basophils (%) (Auto) 0.3 0.0-5.0 % Neutrophils # (Auto) 9.9 H 1.8-7.7 K/uL Lymphocytes # (Auto) 1.0 1.0-4.8 K/uL Monocytes # (Auto) 0.4 0.1-1.0 K/uL Eosinophils # (Auto) 0.00 0.00-0.70 K/uL Basophils # (Auto) 0.03 0.00-0.20 K/uL Absolute Immature Granulocyte (auto 0.24 0-1 K/uL Nucleated Red Blood Cells 0.0 0.0-0.19 % Chemistry Labs: Test 06/06/24 03:44 06/05/24 03:59 Range/Units Sodium Level 143 136-145 mmol/L Potassium Level 3.6 3.5-5.1 mmol/L Chloride Level 108 101-111 mmol/L Carbon Dioxide Level 24 21-32 mmol/L Blood Urea Nitrogen 36 H 7-18 mg/dL Creatinine 1.7 H 0.5-1.0 mg/dL Glomerular Filtration Rate Calc 31 >90 mL/min Random Glucose 146 H 70-105 mg/dL Total Calcium 8.7 8.5-10.1 mg/dL Phosphorus Level 3.9 2.5-4.9 mg/dL Magnesium Level 1.60 L 1.80-2.40 mg/dL DIAGNOSTICS / RADIOLOGY RESULTS: [Reviewed at bedside with nurse ] PLAN Hemodynamically stable from pulmonary stand point continue present medical management may discharge from hospital as per PCP NEURO: Minimize central acting medications as possible. Maintain fall precautions, adequate lighting during the day PULMONARY: Supplemental 02 as needed. Maintain aspiration precautions at all times ABg reviewed Continue solumedrol to 40 mg IV q12h then dc on medrol dose pack and antiboitic . Adjust antibiotics . Continue on Mucomyst, pulmicort and atrovent. CARDIOVASCULAR: Follow hemodynamics. Vital signs per facility protocol GI & NUTRITION: Continue with nutritional support. Continue stool softeners and laxatives as needed. KIDNEYS & ELECTROLYTES: Strict monitoring of intake, output and overall fluid balance. Avoid nephrotoxic medications to the extent possible. Medications to be dosed according to renal function. Monitor electrolytes and replace as needed ENDOCRINE: Maintain blood glucose between 100-180 at all times. Hypoglycemia protocol in place INFECTIOUS DISEASE: Trend temperature, WBC and procalcitonin level Follow cultures, deescalate antibiotics as soon as possible. Panculture if new onset fever ONCOLOGY/HEMATOLOGY/COAGULATION: Monitor for s/s of bleeding Monitor hemoglobin, coagulation studies as needed SKIN: Pressure ulcer prevention per facility protocol Specialty mattress ORTHO/REHAB: Continue PT/OT Prophylaxis: Continue GI and DVT prophylaxis Code Status: Full Resuscitation Disposition: PER PRIMARY TEAM Other: Discharge planning ATTESTATION BY PHYSICIAN Clinical note scribed by Naseem Rahman BSc on my behalf and I attest to the accuracy of the note SHAZIA STANLEY MD I personally scribed for SHAZIA STANLEY MD (EVAN) on 06/06/24 at 21:49. Electronically submitted by Naseem Rahman ([email or web address]). SHAZIA STANLEY MD Jun 06, 2024 21:49
[2024-06-07] VITALS (8 sets, daily range): BP systolic 153–170; BP diastolic 70–82; PULSE 66–77; RESP 17–18; TEMP 97.5–97.7; O2SAT 96–97
[2024-06-07 05:07] LABS: BASOPHILS # (AUTO) 0.04 K/uL (0.00-0.20); BASOPHILS % (AUTO) 0.3 % (0.0-5.0); EOSINOPHILS # (AUTO) 0.02 K/uL (0.00-0.70); EOSINOPHILS % (AUTO) 0.1 % (0.0-8.0); HEMATOCRIT 33.4 % (36-48); IMMATURE GRANULOCYTE ABSOLUTE 0.42 K/uL (0-1); LYMPHOCYTES # (AUTO) 1.2 K/uL (1.0-4.8); LYMPHOCYTES % (AUTO) 8.2 % (21.0-51.0); MEAN CORPUSCULAR HEMOGLOBIN 29.4 pg (27.0-33.0); MEAN CORPUSCULAR HGB CONC 33.8 g/dL (32.0-36.0); MEAN CORPUSCULAR VOLUME 86.8 fL (79-99); MONOCYTES # (AUTO) 0.4 K/uL (0.1-1.0); MONOCYTES % (AUTO) 2.5 % (3.0-13.0); NEUTROPHILS # (AUTO) 12.2 K/uL (1.8-7.7); NEUTROPHILS % (AUTO) 85.9 % (40.0-77.0); PLATELET COUNT (AUTO) 313 K/uL (130-400); RED BLOOD CELL COUNT(AUTO) 3.85 MIL/uL (4.00-5.50); RED CELL DISTRIBUTION WIDTH 14.6 % (11.0-15.5); WHITE BLOOD COUNT (AUTO) 14.2 K/uL (4.8-10.8)
[2024-06-07 05:27] LABS: POTASSIUM 3.8 mmol/L (3.5-5.1)
[2024-06-07] MEDS ORDERED: PRED20TA3 PO (13:07)
[2024-06-07] MEDS ORDERED: MONT-39 PO (13:07)
[2024-06-07] MEDS ORDERED: ALBU18HF7 IH (13:07)
[2024-06-07] MEDS ORDERED: FLUT1DIS4 IH (13:07)
[2024-06-07] MEDS: [UNRECOGNIZED DRUG - OTHER] IV ONE (14:44)
--- NOTE | 2024-06-07 14:49 | NUR ---
PORT DC PORT ACCESSED HERE ON 3RD FLOOR BY MIKEL TAYLOR. PATIENT BEING DISCHARGED RIGHT NOW. ORDER FOR HEPARIN LOCK SYRINGED OBTAINED FROM DR. RIOS. PORT HEPARINIZED BY CLAUDY TAYLOR. ACCESS REMOVED AND NEEDLE INTACT. BANDAGE APPLIED. TOLERATED WELL AND NO BLEEDING OR DISCOMFORT NOTED OR VERBALIZED.
[2024-06-07] MEDS ORDERED: [UNRECOGNIZED DRUG - OTHER] IV ONE (15:00)
--- NOTE | 2024-06-07 15:08 | PN ---
[facility] PROGRESS NOTE Date Patient Seen: Jun 07, 2024 Time of Visit: 15:05 Supervising Physician: VERONIQUE JENKINS MD Primary Care Physician: [Dr. Nohemy Alicia ] Outpatient Specialists: [ ] Inpatient Consults: [[facility] team-pulmo consult ] PROBLEM LIST: Acute COPD exacerbation, improved . Community-acquired pneumonia on admission Immunocompromised status Chronic kidney disease stage 3 Resolved acute kidney injury Right pleural effusion on admission, improved History of right lung cancer, currently not on chemotherapy or immunomodulator due to intolerance of treatment Permanent pacemaker in situ Primary hypertension Former tobacco use disorder INTERVAL HISTORY: 06/07/2024 Mrs. Granda is seen and evaluated She is doing well, no complaints Afebrile, no distress Good appetite, no nausea or vomiting Pending discharge home today Hemodynamically stable REVIEW OF SYSTEMS: 12 point ROS reviewed with patient. Pertinent positives mentioned above. Otherwise negative. PHYSICAL EXAM: GENERAL: alert, awake oriented x 3, not in acute distress HEENT: EOMI, Sclera non icteric, moist mucosa NECK: Supple, no JVD, trachea midline LUNGS: decreased breath sounds, but no wheezing or rhonchi HEART: Regular rate and rhythm. Normal S1 and S2, without murmurs ABD: Abdomen soft, nontender. Bowel sounds present EXT: No clubbing cyanosis or edema NEURO: Alert and oriented to person, follows commands Vital Signs (last 8hr) Date Time Temp Pulse Resp B/P (MAP) Pulse Ox O2 Delivery O2 Flow Rate FiO2 06/07/24 11:50 68 18 06/07/24 11:34 97.5 67 17 161/76 96 Room Air 06/07/24 09:03 153/70 06/07/24 08:30 72 18 N/A Room Air 21 06/07/24 08:08 97.5 66 18 153/70 97 Room Air 06/07/24 07:17 69 18 LABS: Hematology Labs: Test 06/07/24 04:28 Range/Units White Blood Count 14.2 H 4.8-10.8 K/uL Red Blood Count 3.85 L 4.00-5.50 MIL/uL Hemoglobin 11.3 L 12.0-16.0 g/dL Hematocrit 33.4 L 36-48 % Mean Corpuscular Volume 86.8 79-99 fL Mean Corpuscular Hemoglobin 29.4 27.0-33.0 pg Mean Corpuscular Hemoglobin Concent 33.8 32.0-36.0 g/dL Red Cell Distribution Width 14.6 11.0-15.5 % Platelet Count 313 130-400 K/uL Mean Platelet Volume 9.8 7.5-10.5 fL Immature Granulocyte % (Auto) 3.0 H 0-1 % Neutrophils (%) (Auto) 85.9 H 40.0-77.0 % Lymphocytes (%) (Auto) 8.2 L 21.0-51.0 % Monocytes (%) (Auto) 2.5 L 3.0-13.0 % Eosinophils (%) (Auto) 0.1 0.0-8.0 % Basophils (%) (Auto) 0.3 0.0-5.0 % Neutrophils # (Auto) 12.2 H 1.8-7.7 K/uL Lymphocytes # (Auto) 1.2 1.0-4.8 K/uL Monocytes # (Auto) 0.4 0.1-1.0 K/uL Eosinophils # (Auto) 0.02 0.00-0.70 K/uL Basophils # (Auto) 0.04 0.00-0.20 K/uL Absolute Immature Granulocyte (auto 0.42 0-1 K/uL Nucleated Red Blood Cells 0.0 0.0-0.19 % Chemistry Labs: Test 06/07/24 04:28 Range/Units Sodium Level 142 136-145 mmol/L Potassium Level 3.8 3.5-5.1 mmol/L Chloride Level 107 101-111 mmol/L Carbon Dioxide Level 23 21-32 mmol/L Blood Urea Nitrogen 44 H 7-18 mg/dL Creatinine 2.0 H 0.5-1.0 mg/dL Glomerular Filtration Rate Calc 25 >90 mL/min Random Glucose 137 H 70-105 mg/dL Total Calcium 9.1 8.5-10.1 mg/dL DIAGNOSTICS / RADIOLOGY RESULTS: [ Imaging scans reviewed ] PLAN Patient does not have a tube tester Please schedule follow up appointment with [facility] in 10 days Resume home medications Aspiration precautions NEURO: Minimize central acting medications as possible. Maintain fall precautions, adequate lighting during the day PULMONARY: Supplemental 02 as needed. Maintain aspiration precautions at all times ABg reviewed Continue solumedrol to 40 mg IV q12h then dc on medrol dose pack and antiboitic . Adjust antibiotics . Continue on Mucomyst, pulmicort and atrovent. CARDIOVASCULAR: Follow hemodynamics. Vital signs per facility protocol GI & NUTRITION: Continue with nutritional support. Continue stool softeners and laxatives as needed. KIDNEYS & ELECTROLYTES: Strict monitoring of intake, output and overall fluid balance. Avoid nephrotoxic medications to the extent possible. Medications to be dosed according to renal function. Monitor electrolytes and replace as needed ENDOCRINE: Maintain blood glucose between 100-180 at all times. Hypoglycemia protocol in place INFECTIOUS DISEASE: Trend temperature, WBC and procalcitonin level Follow cultures, deescalate antibiotics as soon as possible. Panculture if new onset fever ONCOLOGY/HEMATOLOGY/COAGULATION: Monitor for s/s of bleeding Monitor hemoglobin, coagulation studies as needed SKIN: Pressure ulcer prevention per facility protocol Specialty mattress ORTHO/REHAB: Continue PT/OT Prophylaxis: Continue GI and DVT prophylaxis Code Status: Full Resuscitation Disposition: PER PRIMARY TEAM Other: Hemodynamically stable from pulmonary standpoint for safe medical discharge home ATTESTATION BY PHYSICIAN Note scribed by Naseem Rahman BSc on my behalf and I attest to the clinical accuracy of the documentation. Veronique Jenkins MD I personally scribed for VERONIQUE JENKINS MD ([email or web address]) on 06/07/24 at 15:08. Electronically submitted by Naseem Rahman ([email or web address]). VERONIQUE JENKINS MD Jun 07, 2024 15:08
--- NOTE | 2024-06-07 18:44 | DS ---
Discharge Summary Hospital Course Summary: 74 yo F presented with shortness of breath, cough and wheeze. She was admitted with reactive airway disease exacerbation (asthma vs COPD) and started on empiric antibiotics, nebulizer treatments and systemic steroids. Echocardiogram was ordered, showing no evidence of decreased EF or valvular dysfunction. Due to her history of lung cancer CT chest was ordered and oncology was consulted. CT chest did not show any infiltrates to suggest pneumonia nor any focal lesions. Oncology signed off with no further recommendations. Viral and bacterial cultures were negative for underlying causes of her symptoms. Pulmonology was consulted for further recommendations. By hospital day 6 her breathing improved and she was cleared for discharge by pulmonology. She will be discharged home on several more days of PO prednisone and maintenance inhaler therapy for COPD/asthma. . Social Media Campaign Manager(s): Pulmonology Oncology Procedure(s): CHEST 1VW REASON: congestion COMPARISON: 06/01/2024 FINDINGS: Heart now appears mildly enlarged. There is a small right pleural effusion unchanged. There is no vascular congestion. Lungs are clear. Pacemaker and a chest port are again noted. IMPRESSION: 1. Small right pleural effusion unchanged. Echocardiogram: Conclusion The left ventricle is normal size. LVEF is 55-60%. Indeterminate diastolic dysfunction. The right ventricle is normal size. The right ventricular systolic function is normal. The left atrium size is normal. The right atrium size is normal. No valvular pathology. There is no pericardial effusion. CT CHEST W/O CONTRAST REASON: PLEURAL EFFUSION, PNEUMONIA, LUNG CA COMPARISON: None. TECHNIQUE: Multiple sequential axial images of the chest were obtained from the thoracic inlet through the upper pole of the kidneys without intravenous contrast administration. FINDINGS: There is some pleural thickening and volume loss in the right lung base. Lungs are otherwise clear. There are no acute appearing focal parenchymal infiltrates. Heart size is normal. There is no hilar or mediastinal lymphadenopathy. There is diffuse coronary artery calcification. There is a pacemaker in place. Chest wall appears normal. Visualized upper abdominal structures are unremarkable. IMPRESSION: 1. There is some mild pleural thickening and volume loss in the right lower lobe. 2. No acute focal parenchymal lesion. 3. Coronary artery calcification. Assessment/Plan: Acute respiratory distress, resolved POA Chronic obstructive pulmonary disease exacerbation, POA Acute on chronic kidney failure, stage IV Hypomagnesemia, POA Hypertension Discharge Instructions: Follow up with PCP in 3-7 days Follow up with pulmonology in 1-2 weeks Home Medications: Active Scripts Fluticasone/Salmeterol (ADVAIR 100-50 DISKUS) 14 Inh/Disk Inh, 1 PUFF IH BID for 30 Days, #1 EACH 0 Refills Prov:FRANCY RIOS MD 06/07/24 Prednisone (Prednisone) 20 Mg Tablet, 40 MG PO DAILY for 5 Days, #10 TAB Prov:FRANCY RIOS MD 06/07/24 Albuterol Sulfate (Ventolin Hfa) 90 Mcg Hfa.aer.ad, 2 PUFF IH DAILY PRN for wheezing for 30 Days, #18 GM 1 Refill Prov:FRANCY RIOS MD 06/07/24 Montelukast Sodium (Montelukast Sodium) 10 Mg Tablet, 1 TAB PO HS for 30 Days, #30 TAB 0 Refills Prov:FRANCY RIOS MD 06/07/24 Reported Medications Fexofenadine HCl (Fexofenadine HCl) 180 Mg Tablet, 1 TAB PO DAILY for allergy symptoms for 30 Days, #30 TAB 0 Refills 06/01/24 Potassium Chloride (Klor-Con M20) 20 Meq Tab.er.prt, 1 TAB PO DAILY for 30 Days, #30 TAB 0 Refills 06/01/24 Lactobacillus Combination No.4 (Probiotic) 3 Billion Cell Capsule, 1 EACH PO DAILY, CAP 06/01/24 Multivitamin (Multi Vitamin Daily) 1 Each Tablet, 1 TAB PO DAILY for 30 Days, #30 TAB 0 Refills 06/01/24 Ferrous Sulfate (Iron) 325 Mg (65 Mg Iron) Tablet, 1 TAB PO DAILY for 30 Days, #30 TAB 0 Refills 06/01/24 Folic Acid (Folic Acid) 0.4 Mg Tablet, 1 TAB PO DAILY for 30 Days, #30 TAB 0 Refills 06/01/24 Pantoprazole Sodium (Pantoprazole Sodium) 40 Mg Granpkt.dr, 40 MG PO DAILY, PACK 06/01/24 Magnesium Glycinate (Mag Glycinate) 100 Mg Tablet, 500 MG PO AM, TAB 06/01/24 Atorvastatin Calcium (LIPITOR) 20 Mg Tab, 1 TAB PO HS for 30 Days, #30 TAB 0 Refills 06/01/24 Carvedilol (Carvedilol) 12.5 Mg Tablet, 1 TAB PO BID for 30 Days, #60 TAB 0 Re fills 06/01/24 Valsartan (Valsartan) 160 Mg Tablet, 1 TAB PO DAILY for 30 Days, #30 TAB 0 Refills 06/01/24 Amlodipine Besylate (Amlodipine Besylate) 5 Mg Tablet, 1 TAB PO HS for 30 Days, #30 TAB 0 Refills 06/01/24 New Medications: Fluticasone/Salmeterol (Advair 100-50 Diskus) 14 Inh/Disk Inh 1 PUFF IH BID for 30 Days, #1 EACH 0 Refills Prednisone (Prednisone) 20 Mg Tablet 40 MG PO DAILY for 5 Days, #10 TAB Continued Medications: Albuterol Sulfate (Ventolin Hfa) 90 Mcg Hfa.aer.ad 2 PUFF IH DAILY PRN for wheezing for 30 Days, #18 GM 1 Refill (This prescription has been renewed) Amlodipine Besylate (Amlodipine Besylate) 5 Mg Tablet 1 TAB PO HS for 30 Days, #30 TAB 0 Refills Atorvastatin Calcium (Lipitor) 20 Mg Tab 1 TAB PO HS for 30 Days, #30 TAB 0 Refills Carvedilol (Carvedilol) 12.5 Mg Tablet 1 TAB PO BID for 30 Days, #60 TAB 0 Refills Ferrous Sulfate (Iron) 325 Mg (65 Mg Iron) Tablet 1 TAB PO DAILY for 30 Days, #30 TAB 0 Refills Fexofenadine HCl (Fexofenadine HCl) 180 Mg Tablet 1 TAB PO DAILY for allergy symptoms for 30 Days, #30 TAB 0 Refills Folic Acid (Folic Acid) 0.4 Mg Tablet 1 TAB PO DAILY for 30 Days, #30 TAB 0 Refills Lactobacillus Combination No.4 (Probiotic) 3 Billion Cell Capsule 1 EACH PO DAILY, CAP Magnesium Glycinate (Mag Glycinate) 100 Mg Tablet 500 MG PO AM, TAB Montelukast Sodium (Montelukast Sodium) 10 Mg Tablet 1 TAB PO HS for 30 Days, #30 TAB 0 Refills (This prescription has been renewed) Multivitamin (Multi Vitamin Daily) 1 Each Tablet 1 TAB PO DAILY for 30 Days, #30 TAB 0 Refills Pantoprazole Sodium (Pantoprazole Sodium) 40 Mg Granpkt.dr 40 MG PO DAILY, PACK Potassium Chloride (Klor-Con M20) 20 Meq Tab.er.prt 1 TAB PO DAILY for 30 Days, #30 TAB 0 Refills Valsartan (Valsartan) 160 Mg Tablet 1 TAB PO DAILY for 30 Days, #30 TAB 0 Refills Time spent arranging discharge: 31-60 minutes FRANCY RIOS MD Jun 07, 2024 18:44
== END 2024-06-07 15:20 | disposition home or self-care (01) | DRG 190 ==
LOC: EDH 13:14 → EDHIP 16:25 → 3AH 20:00
PROVIDERS: ADMIT Internal Medicine; ATTEND Internal Medicine
DX: J44.1 Chronic obstructive pulmonary disease with (acute) exacerbation (principal); J18.9 Pneumonia, unspecified organism; D84.9 Immunodeficiency, unspecified; N17.9 Acute kidney failure, unspecified; N18.4 Chronic kidney disease, stage 4 (severe); J91.8 Pleural effusion in other conditions classified elsewhere; J44.0 Chronic obstructive pulmonary disease with (acute) lower respiratory infection; Z20.822 Contact with and (suspected) exposure to COVID-19; E78.00 Pure hypercholesterolemia, unspecified; I12.9 Hypertensive chronic kidney disease with stage 1 through stage 4 chronic kidney disease, or unspecified chronic kidney disease; Z79.899 Other long term (current) drug therapy; E83.42 Hypomagnesemia; Z85.118 Personal history of other malignant neoplasm of bronchus and lung; Z90.710 Acquired absence of both cervix and uterus; Z87.891 Personal history of nicotine dependence; Z88.5 Allergy status to narcotic agent; Z88.8 Allergy status to other drugs, medicaments and biological substances; Z95.810 Presence of automatic (implantable) cardiac defibrillator
CPT/HCPCS: 36415; 36600; 71045; 71250; 80048; 80053; 81001; 82550; 82803; 83735; 83880; 84100; 84484; 85025; 85027; 85610; 85730; 86632; 86738; 87086; 87420; 87426; 87449; 87635; 87804; 93005; 93306; 94640; 94664; 94760; 96375; 99285; G0378; J1642; J1650; J1956; J2919; J3475; J3490